=== PATIENT | male | born 1980 | race Caucasian/White ===

== ENCOUNTER 2022-12-14 11:38 | Emergency (ER) | payer OTHER, SELFPAY ==
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
[2022-12-14 11:42] VITALS: BP 147/81; PULSE 75; RESP 19; TEMP 36.6; O2SAT 99; BMI 24.2
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
== END 2022-12-14 12:18 | disposition home or self-care (01) ==
PROVIDERS: Emergency Provider Emergency Medicine; PCP Internal Medicine
DX: S71.111A Laceration without foreign body, right thigh, initial encounter (principal); S80.12XA Contusion of left lower leg, initial encounter; S80.212A Abrasion, left knee, initial encounter; W26.0XXA Contact with knife, initial encounter; Y93.9 Activity, unspecified; Y92.9 Unspecified place or not applicable; Y99.9 Unspecified external cause status
CPT/HCPCS: 99282; 99283

== ENCOUNTER 2023-02-08 21:43 | Emergency (ER) | payer SELFPAY ==
--- NOTE | ~2023-02-08 | XR_ITS ---
EXAMINATION: XR KNEE, RIGHT CLINICAL INFORMATION: Swelling. COMPARISON: None available. TECHNIQUE: Four views of the right knee. FINDINGS: The bone mineralization is normal. Alignment is anatomic. Joint spaces are maintained. There appears to be a small joint effusion. No abnormal soft tissue calcification. XR/XR knee RT 3V IMPRESSION: No acute osseous abnormality. There appears to be a small joint effusion.
[2023-02-08 22:17] VITALS: BP 137/72; PULSE 84; RESP 16; TEMP 36.9; O2SAT 94; BMI 24.7
[2023-02-08] MEDS: Ibuprofen 600 MG TABLET PO (22:26)
--- NOTE | 2023-02-08 22:27 | PC.NURSE ---
pt medicated with motrin and given ice pack
--- OUTSIDE RECORDS SUMMARY | 2023-02-08 23:29 | XMS_ITS | Continuity of Care Document ---
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 Phone Ilya Girard DO Primary Care Physician Encounter [facility] Date(s): 04/23/21 - 05/23/21 [facility] [address] [place] [address]- Attending Physician: Admtr, Fernie Admitting Physician: Admtr, Ar8 Referring Physician: Admtr, Ar8 Allergies, Adverse Reactions, Alerts Substance Reaction Severity Status NKA Active Medications amoxicillin-clavulanate 875 mg-125 mg oral tablet 1 tablet, By Mouth, Every 12 hours, with food or milk, # 28 tablet, 0 Refills, Maintenance, 05/15/16 19:07:05, Tablet Start Date: 05/15/16 Stop Date: 05/29/16 Status: Ordered Aspirin Enteric Coated 325 mg oral delayed release tablet 1 tablet = 325 mg, By Mouth, Daily, # 30 tablet, 0 Refills, Maintenance, 10/17/15 12:06:53 Start Date: 10/17/15 Status: Ordered clindamycin 300 mg oral capsule 1 capsule = 300 mg, By Mouth, Every 8 hours, # 39 capsule, 0 Refills, tooth abscess Start Date: 12/31/08 Stop Date: 01/07/09 Status: Ordered Colace sodium 100 mg oral capsule 100 mg, 1, capsule, By Mouth, 2 times a day, # 60 capsule, Refills 0, Tot. Refills 0, Maintenance, 10/17/15 12:04:34, Print Requisition Start Date: 10/17/15 Status: Ordered Dilaudid 2 mg oral tablet See Instructions, PRN for pain, 1-3 tablet By Mouth Every 3-6 hours, # 80 tablet, 0 Refills, Maintenance, 10/17/15 12:05:16, Tablet Start Date: 10/17/15 Status: Ordered Methadone By Mouth, 0 Refills, Maintenance, 03/20/21 12:55:00 EDT, Partial fill upon patient request if the prescription is for a schedule II opioid drug. Start Date: 03/20/21 Status: Ordered Omeprazole By Mouth, Daily, 0 Refills, Maintenance, 03/20/21 12:55:00 EDT, Partial fill upon patient request if the prescription is for a schedule II opioid drug. Start Date: 03/20/21 Status: Ordered ondansetron 4 mg oral tablet, disintegrating 1 tablet = 4 mg, By Mouth, Every 8 hours, PRN Nausea & Vomiting, # 5 tablet, 0 Refills, Maintenance, 06/25/16 7:42:14, Tablet Start Date: 06/25/16 Status: Ordered [id number] oral powder for reconstitution = 17 Gm, By Mouth, Daily, PRN Constipation, # 255 Gm, 0 Refills, Maintenance, 10/17/15 12:06:18 Start Date: 10/17/15 Status: Ordered traMADol 50 mg oral tablet 1 tablet = 50 mg, By Mouth, Every 12 hours, PRN as needed for pain, not to exceed 400 mg/day, # 10 tablet, 0 Refills, Maintenance, 05/15/16 19:06:46, Tablet Start Date: 05/15/16 Status: Ordered Tylenol 325 mg oral tablet 650 mg, By Mouth, Every 6 hours, PRN, # 120 tablet, Refills 0, Tot. Refills 0, Maintenance, as needed for pain, 10/17/15 12:04:27, Print Requisition Start Date: 10/17/15 Status: Ordered Ultram 50 mg oral tablet 1 tablet = 50 mg, By Mouth, Every 4 hours, PRN for pain, # 15 tablet, 0 Refills, Maintenance, 01/30/16 23:04:57, Tablet Start Date: 01/30/16 Status: Ordered Social History Social History Type Response Smoking Status Current every day neeta lucas entered on: 09/07/15 Sex
--- OUTSIDE RECORDS SUMMARY | 2023-02-08 23:29 | XMS_ITS | Continuity of Care Document ---
Author Name Unknown Organization [facility] Address [address] [place] [address]- Care Team Providers Care Data Sme Name Role Phone Ilya Girard DO Primary Care Physician Encounter [facility] Date(s): 05/18/21 - 06/17/21 [facility] [address] [place], [place] [address] Attending Physician: Fernie Velez Admitting Physician: AdmtrFernie Referring Physician: Admtr, Ar8 Allergies, Adverse Reactions, [...] 7:42:14, Tablet Start Date: 06/25/16 Status: Ordered [id number] oral powder for reconstitution = 17 Gm, [...]
--- OUTSIDE RECORDS SUMMARY | 2023-02-08 23:29 | XMS_ITS | Continuity of Care Document ---
Author Name Unknown Organization [facility] Address [address] [place] [address]- Care Team Providers Care Children'S Nursery Assistant Name Role Phone Ilya Girard DO Primary Care Physician Encounter [facility] Date(s): 05/06/21 - 06/17/21 [facility] [address] [place], [place] [address] Attending Physician: Tolu Marie MD Referring Physician: Wiliam LPN OR MEDICAL ASSISTANT, Allie Allergies, Adverse Reactions, Alerts Substance Reaction Severity [...] 7:42:14, Tablet Start Date: 06/25/16 Status: Ordered [id number] oral powder for reconstitution = 17 Gm, [...]
--- OUTSIDE RECORDS SUMMARY | 2023-02-08 23:29 | XMS_ITS | Continuity of Care Document ---
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
--- NOTE | 2023-02-08 23:50 | ED_ITS ---
HPI - General Adult General Chief complaint: Extremity Injury, Lower Stated complaint: R knee pain Time Seen by Provider: 02/08/23 23:19 Source: patient Mode of arrival: ambulatory Limitations: no limitations History of Present Illness HPI narrative: 42 yold male presents to the ED Right knee pain. patient states he was kneeling down last night and he heard a pop in right knee as he was kneeling. patient denies any blunt trauma to the knee. patient denies any knee swelling, redness, warmth, bluish/black discloration, fever, or chilss. Related Data Previous Rx's Medication Instructions Recorded amoxicillin 875 mg-potassium 1 tab PO BID #10 tabs 12/14/22 clavulanate 125 mg tablet ketorolac 10 mg tablet 10 mg PO QID PRN pain 5 days #20 02/09/23 tabs prednisone 20 mg tablet 40 mg PO DAILY 5 days #10 tabs 02/09/23 Allergies Allergy/AdvReac Type Severity Reaction Status Date / Time No Known Allergies Allergy Verified 12/14/22 12:10 Review of Systems Review of Systems: Right knee pain Yes all other systems are reviewed and are negative [facility] Social History Social History Advance Directives: No Advance Directives Information Provided: Yes Physical Exam ED Vital Signs: Vital Signs - 24 hr 02/08/23 22:17 Temperature 98.4 F Pulse Rate 84 Respiratory Rate 16 Blood Pressure 137/72 Pulse Oximetry 94 Oxygen Delivery Method Room Air BMI result Body Mass Index 24.7 Const General: cooperative, healthy appearing, comfortable, no acute distress, well developed, alert, awake and Physically active Orientation/consciousness: oriented to person, oriented to place, oriented to time and patient oriented x3 HENMT Head: Yes normal to inspection, Yes No palpable skull fracture present, Yes normocephalic and Yes atraumatic Eyes General: appearance normal, both eyes and all related structures Neck Neck: Yes normal visual inspection, Yes full ROM, Yes no lymphadenopathy, Yes no meningeal signs, Yes trachea midline, No anterior neck swelling and No tender Chest Chest palpation & inspection: normal inspection of the chest and normal palpation of entire chest wall Resp Effort & Inspection: normal respiratory effort and able to speak in complete sentences Cardio Jugular venous distension: no JVD Heart sounds: S1 normal heart sound present and S2 normal heart sound present GI Other: Rectal exam negative for [employer], melena, or bright red blood. Inspection: Yes normal to inspection and No abdominal wall ecchymosis Palpation (GI): Soft to palpation, not firm, nontender, no guarding and not rigid General: No CVA tenderness and Yes no CVA tenderness Back/Spine/Pelvis Back: no CVA tenderness, No CVA tenderness and No back tenderness Skin General skin exam: no rashes or lesions noted and elasticity normal Neuro General: oriented to person, oriented to place, oriented to time, patient oriented x3, tone normal, moves all extremities, Normal light touch and pain sensation, no meningeal signs, no focal motor deficits, CN's II-XI intact bilaterally and normal sensation to monofilament Extrem General: Yes normal to inspection Knee images: 1. Positive for tenderness on palpation. Negative for crepitus, ecchymosis or deformity. Negative for redness or warmth. negative calf pain. negative leg swelling. Motor exam of knee limited due to pain. Neurovascular exam intact. Psych Appearance: grossly normal, well kempt and not disheveled Medications Administered Discontinued Medications Generic Name Dose Route Start Last Admin Trade Name Robbieq PRN Reason Stop Dose Admin Ibuprofen 600 mg 02/08/23 22:23 02/08/23 22:26 Ibuprofen 600 Mg Tablet PO 02/08/23 22:24 600 mg ONCE ONE Administration Ketorolac Tromethamine 30 mg 02/08/23 23:24 02/08/23 23:53 Ketorolac Tromethamine 30 Mg/Ml Vial IM 02/08/23 23:25 30 mg ONCE ONE Administration Prednisone 60 mg 02/08/23 23:24 02/08/23 23:57 Prednisone 20 Mg Tablet PO 02/08/23 23:25 60 mg ONCE ONE Administration Medical Decision Making Medical Decision Making [facility] Narrative: 42 yold presents to ED for right knee pain after hearing popping right knee while trying to kneel down yesterday. Patient denies any blunt trauma, redness, swelling, fever, chills, blood dark discoloration, or deformity. X- ray shows small joint effusion. Most likely patient tore a ligament or meniscus. Not suspecting septic joint. Differential Diagnosis Differential Diagnoses: The differential diagnosis associated with the presentation includes ( knee dislocation, knee fracture, meniscus tear, ligament tear, septic joint,) Admission/Observation Consideration of admission/observation: Escalation of care including admission/observation considered Independent Interpretation I performed an independent interpretation of an: Plain X-Ray Radiology Impression Discussion of test interpretation with radiology: I have reviewed the radiologist's reading. External Record Review External record reviewed: Other (Prior ED visist) Prescription Management I considered prescription management with: Pain Medication and Other (prednisone) Discharge Plan Discharge Clinical Impression: Knee sprain Patient Disposition: Home, Self-Care Instructions: Knee Sprain (ED), Crutch Instructions (ED), How to Use an Elastic Bandage (ED), Swollen Knee Joint (ED), R.I.C.E. Treatment (ED) Additional Instructions: return to the ED for any worsening swelling, redness, warmth, leg swelling, c chcf pain, fever, chills, chest pain, shortness of breath, blue black discoloration, worsening pain, inability to walk, or any other concerning symptoms. Please follow-up with with your PCP for MRI for possible evaluation of meniscus/ligament tear. Prescriptions: New ketorolac 10 mg tablet 10 mg PO QID PRN (Reason: pain) 5 Days Qty: 20 0RF Rx Instructions: received 30mg IM toradol in the ED prednisone 20 mg tablet 40 mg PO DAILY 5 Days Qty: 10 0RF No Action amoxicillin-pot clavulanate 875-125 mg tablet 1 tab PO BID Qty: 10 0RF Stand Alone Forms: Work/School Release Discharge Date/Time: 02/09/23 00:24 Print Language: Uzbek
[2023-02-08] MEDS: Ketorolac Tromethamine 30 MG/ML VIAL IM (23:53)
[2023-02-08] MEDS: predniSONE 20 MG TABLET 60 MG PO (23:57)
--- NOTE | 2023-02-09 | PC.NURSE ---
Patient given Toradol shot and prednisone.Patient requested YASMEEN bandagesw but declined wrapping, stating I'm going home to shower and I want to do it myself . Provider aware
== END 2023-02-09 00:24 | disposition home or self-care (01) ==
PROVIDERS: Emergency Provider Emergency Medicine; PCP Internal Medicine
DX: S83.91XA Sprain of unspecified site of right knee, initial encounter (principal); X50.1XXA Overexertion from prolonged static or awkward postures, initial encounter; Y93.9 Activity, unspecified; Y92.9 Unspecified place or not applicable; Y99.9 Unspecified external cause status
CPT/HCPCS: 73562; 96372; 99282; 99284; J1885

== ENCOUNTER 2023-12-12 00:08 | Emergency (ER) | payer OTHER, SELFPAY ==
--- NOTE | 2023-12-12 00:15 | ED_ITS ---
HPI - General Adult General Chief complaint: Overdose Stated complaint: OD Time Seen by Provider: 12/12/23 00:15 History of Present Illness ED Provider: Gee BRUMFIELD narrative: The patient is a 43-year-old male who comes to the emergency room after being found relatively unresponsive. He says that he took 600 mg of Seroquel and also took a few shots of alcohol. He says he was not trying to kill himself. He says he was stressed trying to get some sleep. It is not clear how an ambulance was involved. The patient says he was alone at the time. Paramedics administered naloxone. The patient remains very sleepy. He denies any other coingestants other than the Seroquel and alcohol. The patient has girlfriend later presented to the waiting room. She says that the patient has been sending her texts indicating that he was going to kill himself. She showed me the texts. The texts indicated that he was saying goodbye and that he regretted not being a better partner. Related Data Home Medications ?Medication ?Instructions ?Recorded ?Confirmed buprenorphine 8 mg-naloxone 2 mg 1 film sublingual TID 12/12/23 12/12/23 sublingual film (Suboxone) Allergies Allergy/AdvReac Type Severity Reaction Status Date / Time No Known Allergies Allergy Verified 12/12/23 00:21 Review of Systems 2 Review of Systems: Yes all other systems are reviewed and are negative [facility] Social History Social History Advance Directives: No Advance Directives Information Provided: No Do you have a plan to hurt others: No Plan Physical Exam ED Vital Signs: Vital Signs - 24 hr 12/12/23 00:18 12/12/23 04:00 12/12/23 06:18 Temperature 97.5 F 97.6 F Pulse Rate 64 73 55 Respiratory Rate 12 16 14 Blood Pressure 156/89 H 121/73 Pulse Oximetry 99 95 Oxygen Delivery Method Room Air Room Air BMI result Body Mass Index 25.0 Const Other: The patient is sleepy but her sons to the loud verbal stimuli. He answers with brief answers. He seems quite somnolent. HENMT Other: Face is symmetrical. Airway clear. Eyes Other: Pupils are round equal, extraocular movements intact. Pupils are not pinpoint. Neck Other: Neck is supple. Resp Effort & Inspection: normal respiratory effort Auscultation: clear to auscultation bilaterally Cardio Rate: regular rate Rhythm: regular rhythm Heart sounds: S1 normal heart sound present and S2 normal heart sound present GI Other: Abdomen is soft and nontender Skin Other: Skin is pale and dry. Neuro Other: The patient is somnolent but responds to loud verbal stimuli. When he answers questions his answers are appropriate but brief. He seems very sleepy but does not seem to have any focal neurological deficit. His eye movements seem intact. His pupils are mid size and symmetrical. His face is symmetrical. He has symmetrical tone in his extremities. Extrem Other: No peripheral edema. Medications Administered Discontinued Medications Generic Name Dose Route Start Last Admin Trade Name Shabnam PRN Reason Stop Dose Admin Buprenorphine/Naloxone 1 film 12/12/23 01:37 12/12/23 01:55 Buprenorphine/Naloxone 8/2 Mg Film SUBLINGUAL 12/12/23 01:38 1 film ONCE ONE Administration Lorazepam 2 mg 12/12/23 01:59 12/12/23 02:04 Lorazepam 1 Mg Tablet PO 12/12/23 02:00 2 mg ONCE ONE Administration Medical Decision Making Medical Decision Making MDM Narrative: The patient presents to the emergency room after apparently overdosing on Seroquel. The patient was brought to the hospital by ambulance. The patient could not tell me who called the ambulance. Later I spoke to the patient's girlfriend who was in the waiting room. She said that she had called the ambulance. She said that she had come back to their apartment and found him passed out on the floor with pills around him. She called 911. Apparently police responded 1st and administered naloxone because he was obtunded. Paramedics then transferred him to the hospital. Although the patient is currently now denying any suicidal intent his girlfriend's version of events suggests otherwise. The patient will therefore be held on a section 12 for evaluation by the care team in the morning. I discussed the case with the poison Center. The patient has an unremarkable EKG, unremarkable vital signs, a negative salicylate and acetaminophen. Poison center felt that the amount of Seroquel described was not of great concern of the patient could be medically cleared after 04:00. The patient requested a dose of Suboxone which was provided. He also requested something to help him sleep. He was given lorazepam. I felt that a section 12 to keep the patient in the emergency department. The patient was unhappy that he has been detained against his well. I will be signing the patient out at change of shift this morning with a care team consult pending. Lab Data 12/12/23 01:46 12/12/23 00:45 Labs: Lab Results 12/12/23 12/12/23 12/12/23 Range/Units 00:39 00:45 00:48 WBC (4.8-10.8) X10*3/uL RBC (4.60-5.80) X10*6/uL Hgb (14.0-18.0) g/dl Hct (42.0-52.0) % MCV (80.0-98.0) fL MCH (27.0-33.0) pg MCHC (31.0-36.0) g/dl RDW (11.0-16.0) % Plt Count (160-400) X10*3/uL MPV (9.4-12.4) fL Immature Gran % (Auto) (0.0-0.4) % Neut % (Auto) (45-73) % Lymph % (Auto) (20-40) % [place] % (Auto) (2-11) % Eos % (Auto) (0-4) % Baso % (Auto) (0-2) % Lymph # (Auto) (1.2-4.9) X10*3/uL [place] # (Auto) (0.1-1.2) X10*3/uL Eos # (Auto) (0.0-0.4) X10*3/uL Baso # (Auto) (0.0-0.2) X10*3/uL Abs Immat Gran (auto) (0.00-0.03) X10*3/uL Absolute Neuts (auto) (2.0-8.3) x10*3/uL Absolute Nucleated RBC (0.0-0.012) X10*3/uL Nucleated RBC % (auto) (0.0-0.2) /100WBC PT 11.8 (11.1-13.3) SEC INR 1.0 (0.9-1.1) VBG pH 7.34 (7.32-7.43) VBG pCO2 44 mmHg VBG pO2 70 mmHg VBG HCO3 24 (22-26) mmol/L VBG O2 Saturation 91.0 % VBG Base Excess -1.3 mmol/L Sodium 145 (135-145) mmol/L Potassium 3.4 (3.3-5.1) mmol/L Chloride 108 (96-108) mmol/L Carbon Dioxide 23 (22-29) mmol/L Anion Gap 17 (12-20) BUN 15 (9-16) mg/dL Creatinine 0.72 (0.5-1.4) mg/dL Estim Creat Clear Calc 113.8 Estimated GFR > 60 Random Glucose 95 (60-115) mg/dL Calcium 9.3 (8.4-10.2) mg/dL Magnesium 2.1 (1.6-2.6) mg/dL Total Bilirubin 0.8 (0.0-1.0) mg/dL Direct Bilirubin 0.4 (0.0-0.5) mg/dL AST 119 H (5-37) U/L ALT 181 H (0-40) U/L Alkaline Phosphatase 102 (39-117) U/L Total Protein 7.5 (6.5-8.0) g/dL Albumin 4.3 (3.5-5.0) g/dL Urine Color Urine Appearance Urine pH (5.0-9.0) Ur Specific [place] (1.005-1.025) Urine Protein (Neg-Trace) mg/dL Urine Glucose (UA) (Negative) mg/dL Urine Ketones (Negative) mg/dL Urine Blood (Negative) Urine Nitrite (Negative) Ur Leukocyte Esterase (Negative) Salicylates < 5.0 L (15-30) mg/dL Urine Opiates Screen (Not Detect) Ur Buprenorphine Scrn (Not Detect) ng/mL Ur Oxycodone Screen (Not Detect) ng/mL Urine Methadone Screen (Not Detect) ng/mL Urine Fentanyl Screen (Not Detect) Acetaminophen < 3 (<30) mcg/mL Ur Barbiturates Screen (Not Detect) Ur Phencyclidine Scrn (Not Detect) Ur Amphetamines Screen (Not Detect) U Benzodiazepines Scrn (Not Detect) Urine Cocaine Screen (Not Detect) U Marijuana (THC) Screen (Not Detect) Ethyl Alcohol 185 mg/dL Influenza Type A (PCR) NEGATIVE (Negative) Influenza Type B (PCR) NEGATIVE (Negative) RSV RNA Qual (PCR) NEGATIVE (Negative) SARS-CoV-2 RNA (RT-PCR) NEGATIVE (Negative) 12/12/23 12/12/23 Range/Units 01:13 01:46 WBC 7.0 (4.8-10.8) X10*3/uL RBC 4.85 (4.60-5.80) X10*6/uL Hgb 15.7 (14.0-18.0) g/dl Hct 44.4 (42.0-52.0) % MCV 91.5 (80.0-98.0) fL MCH 32.4 (27.0-33.0) pg MCHC 35.4 (31.0-36.0) g/dl RDW 12.7 (11.0-16.0) % Plt Count 149 L (160-400) X10*3/uL MPV 9.7 (9.4-12.4) fL Immature Gran % (Auto) 0.3 (0.0-0.4) % Neut % (Auto) 56.7 (45-73) % Lymph % (Auto) 33.7 (20-40) % [place] % (Auto) 6.5 (2-11) % Eos % (Auto) 2.4 (0-4) % Baso % (Auto) 0.4 (0-2) % Lymph # (Auto) 2.4 (1.2-4.9) X10*3/uL [place] # (Auto) 0.5 (0.1-1.2) X10*3/uL Eos # (Auto) 0.2 (0.0-0.4) X10*3/uL Baso # (Auto) 0.0 (0.0-0.2) X10*3/uL Abs Immat Gran (auto) 0.02 (0.00-0.03) X10*3/uL Absolute Neuts (auto) 4.0 (2.0-8.3) x10*3/uL Absolute Nucleated RBC 0.000 (0.0-0.012) X10*3/uL Nucleated RBC % (auto) 0.0 (0.0-0.2) /100WBC PT (11.1-13.3) SEC INR (0.9-1.1) VBG pH (7.32-7.43) VBG pCO2 mmHg VBG pO2 mmHg VBG HCO3 (22-26) mmol/L VBG O2 Saturation % VBG Base Excess mmol/L Sodium (135-145) mmol/L Potassium (3.3-5.1) mmol/L Chloride (96-108) mmol/L Carbon Dioxide (22-29) mmol/L Anion Gap (12-20) BUN (9-16) mg/dL Creatinine (0.5-1.4) mg/dL Estim Creat Clear Calc Estimated GFR Random Glucose (60-115) mg/dL Calcium (8.4-10.2) mg/dL Magnesium (1.6-2.6) mg/dL Total Bilirubin (0.0-1.0) mg/dL Direct Bilirubin (0.0-0.5) mg/dL AST (5-37) U/L ALT (0-40) U/L Alkaline Phosphatase (39-117) U/L Total Protein (6.5-8.0) g/dL Albumin (3.5-5.0) g/dL Urine Color Yellow Urine Appearance Clear Urine pH 5.5 (5.0-9.0) Ur Specific [place] 1.010 (1.005-1.025) Urine Protein Negative (Neg-Trace) mg/dL Urine Glucose (UA) Negative (Negative) mg/dL Urine Ketones Negative (Negative) mg/dL Urine Blood Negative (Negative) Urine Nitrite Negative (Negative) Ur Leukocyte Esterase Negative (Negative) Salicylates (15-30) mg/dL Urine Opiates Screen Not Detected (Not Detect) Ur Buprenorphine Scrn Positive H (Not Detect) ng/mL Ur Oxycodone Screen Not Detected (Not Detect) ng/mL Urine Methadone Screen Not Detected (Not Detect) ng/mL Urine Fentanyl Screen Not Detected (Not Detect) Acetaminophen (<30) mcg/mL Ur Barbiturates Screen Not Detected (Not Detect) Ur Phencyclidine Scrn Not Detected (Not Detect) Ur Amphetamines Screen Not Detected (Not Detect) U Benzodiazepines Scrn Not Detected (Not Detect) Urine Cocaine Screen POSITIVE H (Not Detect) U Marijuana (THC) Screen POSITIVE H (Not Detect) Ethyl Alcohol mg/dL Influenza Type A (PCR) (Negative) Influenza Type B (PCR) (Negative) RSV RNA Qual (PCR) (Negative) SARS-CoV-2 RNA (RT-PCR) (Negative) Discharge Plan Discharge Clinical Impression: Overdose Patient Disposition: Still a Patient Prescriptions: No Action buprenorphine-naloxone [Suboxone] 8-2 mg film 1 film sublingual TID Print Language: Cymraes
[2023-12-12 00:18] VITALS: BP 150/90; BP 156/89; PULSE 64; RESP 12; TEMP 36.4; O2SAT 100; O2SAT 99; BMI 25.0
--- NOTE | 2023-12-12 00:19 | ECG_ITS ---
Test Reason : OVERDOSE Blood Pressure : / mmHG Vent. Rate : 062 BPM Atrial Rate : 062 BPM P-R Int : 164 ms QRS Dur : 096 ms QT Int : 410 ms P-R-T Axes : 057 043 039 degrees QTc Int : 416 ms Normal sinus rhythm Normal ECG No previous ECGs available Referred By: Alexx Flynn Electronically Signed By:KURT GENAO MD
[2023-12-12 00:56] LABS: VBG Base Excess -1.3 mmol/L; VBG HCO3 24 mmol/L (22-26); VBG pCO2 44 mmHg; VBG pH 7.34 (7.32-7.43); VBG pO2 70 mmHg
[2023-12-12 00:57] LABS: Venous Blood Gas Refer to POC result
[2023-12-12 00:59] LABS: Prothrombin Time 11.8 SEC (11.1-13.3)
[2023-12-12 01:08] LABS: Alanine Aminotransferase 181 U/L (0-40); Albumin Level 4.3 g/dL (3.5-5.0); Alkaline Phosphatase 102 U/L (39-117); Anion Gap 17 (12-20); Aspartate Amino Transferase 119 U/L (5-37); Bilirubin Direct 0.4 mg/dL (0.0-0.5); Bilirubin Total 0.8 mg/dL (0.0-1.0); Blood Urea Nitrogen 15 mg/dL (9-16); Calcium 9.3 mg/dL (8.4-10.2); Carbon Dioxide 23 mmol/L (22-29); Chloride 108 mmol/L (96-108); Creatinine Clr Calc Pharmacy 113.8; Estimated Glomerular Filt Rate > 60; Ethanol 185 mg/dL; Glucose Random 95 mg/dL (60-115); Magnesium 2.1 mg/dL (1.6-2.6); Potassium 3.4 mmol/L (3.3-5.1); Sodium 145 mmol/L (135-145); Total Protein 7.5 g/dL (6.5-8.0)
[2023-12-12 01:13] LABS: Acetaminophen LAB < 3 mcg/mL (<30); Salicylate < 5.0 mg/dL (15-30)
[2023-12-12 01:23] LABS: Appearance Urine Clear; Color Urine Yellow; Glucose Urine UA Negative (Negative); Leukocyte Esterase Urine Negative (Negative); Nitrite Urine Negative (Negative); PH 5.5 (5.0-9.0); Urine Blood Negative (Negative); Urine Ketones Negative (Negative); Urine Protein Negative (Neg-Trace)
[2023-12-12 01:30] LABS: Influenza A PCR NEGATIVE (Negative); Influenza B PCR NEGATIVE (Negative); Resp Syncy Virus RNA Qual PCR NEGATIVE (Negative); SARS COV2 PCR INHOUSE NEGATIVE (Negative)
[2023-12-12 01:34] LABS: Amphetamine Screen Urine Not Detected (Not Detect); Barbiturates, Urine Not Detected (Not Detect); Benzodiazepines Screen Urine Not Detected (Not Detect); Buprenorphine Scr Positive (Not Detect); Cannabinoid Screen Urine POSITIVE (Not Detect); Cocaine Screen Urine POSITIVE (Not Detect); Fentanyl, urine Not Detected (Not Detect); Methadone Screen, Urine Not Detected (Not Detect); Opiate Screen Urine Not Detected (Not Detect); Oxycodone Screen Urine Not Detected (Not Detect); Phencyclidine Screen Urine Not Detected (Not Detect)
--- NOTE | 2023-12-12 01:49 | PC.NURSE ---
Dr. Cartagena called poison control.
[2023-12-12 01:50] LABS: MANUAL DIFF FLAG NO
--- NOTE | 2023-12-12 01:50 | PC.NURSE ---
Girlfriend in waiting area reports having phone messages proving this was a suicide attempt as pt has been suicidal the past few days. made aware.
[2023-12-12 01:52] LABS: Basophils Percent Auto 0.4 % (0-2); Eosinophils Absolute Auto 0.2 X10*3/uL (0.0-0.4); Eosinophils Percent Auto 2.4 % (0-4); Hematocrit 44.4 % (42.0-52.0); Hemoglobin 15.7 g/dl (14.0-18.0); Imm Gran Abs Auto 0.02 X10*3/uL (0.00-0.03); Imm Gran Pct Auto 0.3 % (0.0-0.4); Lymphocytes Absolute Auto 2.4 X10*3/uL (1.2-4.9); Lymphocytes Percent Auto 33.7 % (20-40); Mean Corpuscular HGB Conc 35.4 g/dl (31.0-36.0); Mean Corpuscular Hemoglobin 32.4 pg (27.0-33.0); Mean Corpuscular Volume 91.5 fL (80.0-98.0); Mean Platelet Volume 9.7 fL (9.4-12.4); Monocytes Absolute Auto 0.5 X10*3/uL (0.1-1.2); Monocytes Percent Auto 6.5 % (2-11); Neutrophils Percent Auto 56.7 % (45-73); Platelet Count 149 X10*3/uL (160-400); Red Blood Count 4.85 X10*6/uL (4.60-5.80); Red Cell Distribution Width 12.7 % (11.0-16.0)
[2023-12-12] MEDS: Buprenorphine/Naloxone 8/2 mg FILM 1 FILM SUBLINGUAL ×3 (01:55→22:34)
[2023-12-12] MEDS: LORazepam 1 MG TABLET 2 MG PO (02:04)
[2023-12-12 04:00] VITALS: PULSE 73; RESP 16
[2023-12-12 06:18] VITALS: BP 121/73; PULSE 55; RESP 14; TEMP 36.4; O2SAT 95
--- NOTE | 2023-12-12 07:47 | PC.NURSE ---
report recieved from previous RN, patient resting on stretcher, respirations even and unlaborerd, 1:1 sitter remains at bedside at this time. all safety maintained
[2023-12-12 08:00] VITALS: BP 137/79; PULSE 79; RESP 12; TEMP 36.6; O2SAT 98
--- NOTE | 2023-12-12 09:44 | PC.NURSE ---
Ate well for breakfast, denies pain or discomfort. 1:[address]
[2023-12-12 10:00] VITALS: BP 135/73; PULSE 75; TEMP 36.8; O2SAT 93
[2023-12-12 12:00] VITALS: BP 123/81; PULSE 58; TEMP 36.9; O2SAT 97
--- NOTE | 2023-12-12 13:07 | PC.NURSE ---
patient resting comfortably on stretcher at this time, offering no complaints, 1:1 remains at bedside, all safety maintained
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
--- NOTE | 2023-12-12 14:48 | PC.NURSE ---
Assumed care of patient at 1400, patient provided with snacks and went straight to sleep on couch in BH 8, no apparent distress, respirations even and unlabored
--- NOTE | 2023-12-12 18:01 | MHC.CARE ---
Patient evaluated by the CARE Team and psychiatry this morning, disposition inpatient psychiatric treatment. He will remain in the ED and is on a Section 12A, will be reassessed in the morning. Dr. Sevilla aware of the plan and in agreement.
--- NOTE | 2023-12-12 19:10 | PC.NURSE ---
patient appears in no distress presently awaits reassessment by care team in am appears in no distress...
[2023-12-13 06:19] VITALS: BP 113/75; PULSE 51; TEMP 36.4; O2SAT 98
[2023-12-13] MEDS: Buprenorphine/Naloxone 8/2 mg FILM 1 FILM SUBLINGUAL (08:10)
--- NOTE | 2023-12-13 11:07 | P.CNPS_ITS ---
History of Present Illness Date of Service: 12/13/2023 Chief Complaint: OD Discussed with referring provider: Yes Sources of Information: patient interviewed, chart reviewed and crisis/core team assessment reviewed HPI Narrative: Interim Hx: pt presents as calmer. He continues to denied suicidal ideation. He reports he has been overwhelmed and upset about his relationship with his GF. He reports there are trust issues between us. He does not that she is trying to help him but also continues to denied that it was a suicide attempt. He denies any safety concern or referrals for outpatient services. Per nursing, pt has been calm, cooperative. He is taking medications as prescribed. No behavioral concerns. Past Psychiatric History: Inpt: denies OP:Jackelyn Dennison Past med trials: campral, seroquel Diagnostics Vital Signs (24Hr): Vital Signs - 24 hr 12/12/23 12:00 12/13/23 06:19 Temperature 98.4 F 97.6 F Pulse Rate 58 51 Blood Pressure 123/81 113/75 Pulse Oximetry 97 98 Oxygen Delivery Method Room Air Room Air BMI result Body Mass Index 25.0 Labs 12/12/23 01:46 12/12/23 00:45 Labs: Laboratory Results - last 48 hr 12/12/23 12/12/23 12/12/23 00:39 00:45 00:48 WBC RBC Hgb Hct MCV MCH MCHC RDW Plt Count MPV Immature Gran % (Auto) Neut % (Auto) Lymph % (Auto) [place] % (Auto) Eos % (Auto) Baso % (Auto) Lymph # (Auto) [place] # (Auto) Eos # (Auto) Baso # (Auto) Abs Immat Gran (auto) Absolute Neuts (auto) Absolute Nucleated RBC Nucleated RBC % (auto) PT 11.8 INR 1.0 VBG pH 7.34 VBG pCO2 44 VBG pO2 70 VBG HCO3 24 VBG O2 Saturation 91.0 VBG Base Excess -1.3 Sodium 145 Potassium 3.4 Chloride 108 Carbon Dioxide 23 Anion Gap 17 BUN 15 Creatinine 0.72 Estim Creat Clear Calc 113.8 Estimated GFR > 60 Random Glucose 95 Calcium 9.3 Magnesium 2.1 Total Bilirubin 0.8 Direct Bilirubin 0.4 AST 119 H ALT 181 H Alkaline Phosphatase 102 Total Protein 7.5 Albumin 4.3 Urine Color Urine Appearance Urine pH Ur Specific [place] Urine Protein Urine Glucose (UA) Urine Ketones Urine Blood Urine Nitrite Ur Leukocyte Esterase Salicylates < 5.0 L Urine Opiates Screen Ur Buprenorphine Scrn Ur Oxycodone Screen Urine Methadone Screen Urine Fentanyl Screen Acetaminophen < 3 Ur Barbiturates Screen Ur Phencyclidine Scrn Ur Amphetamines Screen U Benzodiazepines Scrn Urine Cocaine Screen U Marijuana (THC) Screen Ethyl Alcohol 185 Influenza Type A (PCR) NEGATIVE Influenza Type B (PCR) NEGATIVE RSV RNA Qual (PCR) NEGATIVE SARS-CoV-2 RNA (RT-PCR) NEGATIVE 12/12/23 12/12/23 01:13 01:46 WBC 7.0 RBC 4.85 Hgb 15.7 Hct 44.4 MCV 91.5 MCH 32.4 MCHC 35.4 RDW 12.7 Plt Count 149 L MPV 9.7 Immature Gran % (Auto) 0.3 Neut % (Auto) 56.7 Lymph % (Auto) 33.7 [place] % (Auto) 6.5 Eos % (Auto) 2.4 Baso % (Auto) 0.4 Lymph # (Auto) 2.4 [place] # (Auto) 0.5 Eos # (Auto) 0.2 Baso # (Auto) 0.0 Abs Immat Gran (auto) 0.02 Absolute Neuts (auto) 4.0 Absolute Nucleated RBC 0.000 Nucleated RBC % (auto) 0.0 PT INR VBG pH VBG pCO2 VBG pO2 VBG HCO3 VBG O2 Saturation VBG Base Excess Sodium Potassium Chloride Carbon Dioxide Anion Gap BUN Creatinine Estim Creat Clear Calc Estimated GFR Random Glucose Calcium Magnesium Total Bilirubin Direct Bilirubin AST ALT Alkaline Phosphatase Total Protein Albumin Urine Color Yellow Urine Appearance Clear Urine pH 5.5 Ur Specific [place] 1.010 Urine Protein Negative Urine Glucose (UA) Negative Urine Ketones Negative Urine Blood Negative Urine Nitrite Negative Ur Leukocyte Esterase Negative Salicylates Urine Opiates Screen Not Detected Ur Buprenorphine Scrn Positive H Ur Oxycodone Screen Not Detected Urine Methadone Screen Not Detected Urine Fentanyl Screen Not Detected Acetaminophen Ur Barbiturates Screen Not Detected Ur Phencyclidine Scrn Not Detected Ur Amphetamines Screen Not Detected U Benzodiazepines Scrn Not Detected Urine Cocaine Screen POSITIVE H U Marijuana (THC) Screen POSITIVE H Ethyl Alcohol Influenza Type A (PCR) Influenza Type B (PCR) RSV RNA Qual (PCR) SARS-CoV-2 RNA (RT-PCR) Mental Status Exam Mental Status Exam Narrative: Appearance: wearing hospital gown, fair hygiene, in NAD behavior: more cooperative and calmer. Psychomotor: no agitation or retardation noted Speech: clear, normal rate/rhythm/volume, spontaneous TP: linear TC: wanting to go home and denying suicidal ideation nor that he attempted to end his life Mood: calmer Affect: congruent, less guarded. SI: adamantly denies HI: none VH/AH: none Delusions: none Insight/judgment: poor x 2. Memory/cog: alert, oriented x 3. grossly intact to conversational testing. Medications Medications Current Medications Buprenorphine/Naloxone (Buprenorphine/Naloxone 8/2 Mg Film) 1 film SUBLINGUAL TID SOLIS Last Admin: 12/13/23 08:10 Dose: 1 film Allergies Allergies Allergy/AdvReac Type Severity Reaction Status Date / Time No Known Allergies Allergy Verified 12/12/23 00:21 Assessment & Plan Assessment & Plan (1) Mood disorder: Status: Acute Code(s): F39 - Unspecified mood [affective] disorder (2) Alcohol use disorder, moderate, dependence: Status: Acute Code(s): F10.20 - Alcohol dependence, uncomplicated (3) Cocaine use disorder, moderate, dependence: Status: Acute Code(s): F14.20 - Cocaine dependence, uncomplicated (4) Opioid use disorder, moderate, in early remission, on maintenance therapy, dependence: Status: Acute Code(s): F11.21 - Opioid dependence, in remission Plan Mr. Angeles is a 43 year-old male who was brought via EMS after GF found him unresponsive. He had sent several messages to her saying goodbye and stating he hoped he was a better partner to her. Utox was positive for buprenorphine, cocaine, THC. BAL 182. In the ED, VS stable, EKG unremarkable. No significant medical finding to support more severe form of self harm. Pt adamantly denies that he attempted to end his life. He reports messages were related to him ending the relationship. He states he was trying to sleep and therefore he passed out on the floor. PLAN 12/12 pt continues to present as calm, cooperative, adamantly denying that he tried to end his life or that he is suicidal. He reports text messages were with intent to her attention and that he was referring when saying good bye to the relationship. He did not state that he was ending his life. He is able to identify other protective factors like his mother, his other children. He declines further referrals for outpatient services. He is currently on suboxone and sees psychiatric prescriber. Recommend to discharge. Total time managing care of this patient today ____ minutes.
[2023-12-13 12:12] VITALS: BP 113/75; PULSE 51; RESP 18; TEMP 36.4; O2SAT 98
--- OUTSIDE RECORDS SUMMARY | 2023-12-15 07:28 | XMS_ITS | Continuity of Care Document ---
Author Organization [facility] ter Address [address] [place] [address]- Care Team Providers Care Communication Center Operator Name Role Phone YuanIlya contreras DO Primary Care Physician Encounter 11/17/23 - 11/18/[address] [address] Attending Physician: Not on Staff, Attending MD Referring Physician: Not on Staff, Referring MD Allergies, Adverse Reactions, Alerts No Known Allergies Medications Methadone By Mouth, 0 Refills, Maintenance, 03/20/21 12:55:00 EDT, Partial fill upon patient request if the prescription is for a schedule II opioid drug. Start Date: 03/20/21 Status: Ordered Omeprazole By Mouth, Daily, 0 Refills, Maintenance, 03/20/21 12:55:00 EDT, Partial fill upon patient request if the prescription is for a schedule II opioid drug. Start Date: 03/20/21 Status: Ordered oxyCODONE 5 mg oral tablet Refills 0, Tot. Refills 0, Maintenance, 04/18/23 12:20:00 EDT, Partial fill upon patient request ifthe prescription is for a schedule II opioid drug. Start Date: 04/18/23 Status: Ordered Results Radiology Reports * Exam Date Time Procedure Performing Provider Status 11/17/23 5:04 PM MRI Ext Lower W/O Contrast Right Auth (Verified) Notes: (MRI Ext Lower W/O Contrast Right) Reason For Exam: Reason For Exam: M25.561 - Pain in right knee, , ? ACL tear;Reason For Exam: M25.561 - Pain in right knee, , ? ACL tear RESULT: MRI Ext Lower W/O Contrast Right [facility] VISIT NUMBER :[id number] Patient Name: Tyrel Angeles Date of : 1980 Date of Exam: 11-17-2023 Referring Physician: Abram Marshall [facility] [address], [address] [place] [address] Exam: MR Knee (C-) CPT 83266 - Right Room Description: Dago A[facility]zquita [facility] 1.5 MRI right knee History: Pain. Partial medial meniscectomy 04/18/2023 Findings: Truncation of the body and posterior horn of the medial meniscus. Horizontal signal in the body and posterior horn of the medial meniscus contacts the inferior articular surface. Lateral meniscus is intact. Lateral tibial plateau fracture. Fracture line extends through weightbearing surface cartilage of the lateral tibial plateau on image 13 of series 7. Fracture line extends into the midline tibia and through the base of the medial tibial spine. No significant tibial spine distraction. Marrow edema is noted throughout the tibial plateau. No significant depression or incongruity within the lateral compartment The ACL and PCL are intact The MCL is intact The LCL complex including the biceps femoris, popliteus and fibular collateral ligaments are intact The medial and lateral patellar retinacula are intact. The extensor mechanism is intact. Small Grover's cyst. Mild edema within the anterior and lateral compartment musculature of the imaged proximal leg. Mild edema within the popliteus muscle. Impression: Lateral tibial plateau fracture as detailed above. Truncation of the body and posterior horn of the medial meniscus. Horizontal signal in the body and posterior horn of the medial meniscus contacts the inferior articular surface. Difficult to exclude a tear but the findings could be related to previous partial medial meniscectomy. A Significant actionable finding will be communicated to the ordering or responsible provider by the medical records department. Receipt of this communication by the responsible or ordering provider will be documented in [employer] Actionable Findings, message ID [id number]. Electronically Signed By: Ronen Cade MD Dictated By: Not on Staff ERIKA MD Dictated Date/Time: 11/18/23 8:54 am Reviewed By: Not on Staff ERIKA MD Signed By: Not on Staff ERIKA MD Signed Date/Time: 11/18/23 8:54 am Transcribed By: HUNG Transcribed Date/Time: 11/18/23 8:54 am Social History Social History Type Response Smoking Status Current every day neeta lucas entered on: 09/07/15 Sex Patient Care team information Care Team Personnel Name: Darby Small RN Position: [facility] RN Member Role: Primary Care Nurse Name: Ilya Girard DO Position: [facility] Physician - Primary Care Member Role: PCP Address: Address: [address] [place] [address] [address] [place] [address]- Care Team Related Persons Name: SUPRIYAEZEKIELGARY BAILEY Address: home [address] [place] [address] Name: JORGE BEARD Address: home [address] [place] [address]
--- OUTSIDE RECORDS SUMMARY | 2023-12-15 07:28 | XMS_ITS | Continuity of Care Document ---
Author Organization [facility] ter Address [address] [place] [id number]- Care Team Providers Care Band Top Maker Name Role Phone YuanjosefinaIlya mcgarry DO Primary Care Physician Encounter [facility] Date(s): 02/27/23 - 02/27/[address] [address]- Discharge Disposition: A-D/C Home Attending Physician: Carter Winslow MD Admitting Physician: Carter Winslow MD Referring Physician: Not on Staff, Referring [...] 12:05:16, Tablet Start Date: 10/17/15 Status: Ordered Macrobid macrocrystals-monohydrate 100 mg oral capsule 1 capsule = 100 mg, By Mouth, 2 times a day, for 5 days, # 10 capsule, 0 Refills, Acute 03/04/23 15:48:00 EDT, 02/27/23 15:48:00 EDT, Capsule, [facility], Partial fill upon patient request if the prescription is for a schedule II opioid... Start Date: 02/27/23 Stop Date: 03/04/23 Status: Ordered Methadone By Mouth, 0 Refills, Maintenance, 03/20/21 12:55:00 EDT, Partial fill upon patient request if the prescription is for a schedule II opioid drug. Start Date: 03/20/21 Status: Ordered nitrofurantoin macrocrystals 100 mg oral capsule 1 capsule = 100 mg, By Mouth, 2 times a day, for 5 days, # 10 capsule, 0 Refills, Acute 03/04/23 15:20:00 EDT, 02/27/23 15:20:00 EDT, [id number] Partial fill upon patient request ifthe prescription is for a schedule II opioid drug.,... Start Date: 02/27/23 Stop Date: 03/04/23 Status: Ordered Omeprazole By Mouth, Daily, 0 [...] 7:42:14, Tablet Start Date: 06/25/16 Status: Ordered [id number] oral powder for reconstitution = 17 Gm, [...] 23:04:57, Tablet Start Date: 01/30/16 Status: Ordered Results Orders for Microbiology Reports Name Date Urine Culture (URINE CULTURE) 02/27/23 Microbiology Reports TEST:Urine Culture STATUS:Unauthenticated BODY SITE: SOURCE:URINE COLLECTED DATE/TIME:02/27/23 10:10 AM Urine Culture SPECIMEN DESCRIPTION : URINE CLEAN CATCH/MIDSTREAM SPECIAL REQUESTS : NONE Reflexed from [id number] REPORT STATUS : PRELIMINARY REPORT Vital Signs Most recent to oldest [Reference Range]: 1 2 3 Height 178 cm (02/27/23 10:27 AM) 178 cm (02/27/23 10:18 AM) Weight 75.4 kg (02/27/23 10:27 AM) 75.4 kg (02/27/23 10:18 AM) Oxygen Saturation [94-100 %] 96 % (02/27/23 2:13 PM) 95 % (02/27/23 12:02 PM) 96 % (02/27/23 10:18 AM) Pulse Rate [55-90 bpm] 77 bpm (02/27/23 2:13 PM) 74 bpm (02/27/23 12:02 PM) 87 bpm (02/27/23 10:18 AM) Body Mass Index [18.5-24.99 kg/m2] 23.8 kg/m2 (02/27/23 10:18 AM) Blood Pressure [90-138/55-84 mm Hg] 138/88mm Hg (02/27/23 2:13 PM) 143/87mm Hg *H* (02/27/23 12:02 PM) 178/91mm Hg *H* (02/27/23 10:18 AM) Respiratory Rate [16-30 br/min] 18 br/min (02/27/23 2:13 PM) 18 br/min (02/27/23 12:02 PM) 18 br/min (02/27/23 10:18 AM) Temperature [96.8-100.4 DegF] 98.4 DegF (02/27/23 2:13 PM) 98.4 DegF (02/27/23 12:02 PM) 98.8 DegF (02/27/23 10:18 AM) Mode of Delivery (Oxygen) Room air (02/27/23 2:13 PM) Room air (02/27/23 12:02 PM) Room air (02/27/23 10:18 AM) Blood pressure sites Arm, left (02/27/23 2:13 PM) Arm, left (02/27/23 12:02 PM) Arm, right (02/27/23 10:18 AM) Temperature Route Oral (02/27/23 2:13 PM) Oral (02/27/23 12:02 PM) Oral (02/27/23 10:18 AM) Social History Social History Type Response Smoking Status Current every day neeta lance entered on: 09/07/15 Sex Patient Care team information Care Team Personnel Name: Darby Small RN Position: [facility] RN Member Role: Primary Care Nurse Name: Ilya Girard DO Position: [facility] Physician - Primary Care Member Role: PCP Address: Address: [address] [place] [address] [address] [place] [address]- Name: *[facility], ED Attending Position: [facility] ED Attendings Patient Name: Carter Winslow MD Position: [facility] ED Medicine MD Member Role: Admitting Physician Address: Address: [address] [facility] [place] [address]- Care Team Related Persons Name: GARY WU Address: home [address] [place] [address] Name: JORGE BEARD Address: home [address] [place] [address]
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
== END 2023-12-13 12:14 | disposition home or self-care (01) ==
PROVIDERS: Emergency Provider Emergency Medicine
DX: T43.591A Poisoning by other antipsychotics and neuroleptics, accidental (unintentional), initial encounter (principal); R45.851 Suicidal ideations; F43.9 Reaction to severe stress, unspecified; F39 Unspecified mood [affective] disorder; Y92.9 Unspecified place or not applicable; Z79.899 Other long term (current) drug therapy; Z03.818 Encounter for observation for suspected exposure to other biological agents ruled out
CPT/HCPCS: 0241U; 80048; 80076; 80143; 80179; 80307; 81003; 82803; 83735; 85025; 85610; 93005; 99285; S9485

== ENCOUNTER → 2023-12-12 00:19 | Outpatient (BNV) | payer OTHER, SELFPAY | PROVIDERS: Emergency Provider Emergency Medicine; Visit Provider Internal Medicine Cardiovascular Disease | DX: T43.3X1A Poisoning by phenothiazine antipsychotics and neuroleptics, accidental (unintentional), initial encounter (principal) | CPT/HCPCS: 93010 ==

== ENCOUNTER → 2023-12-12 00:46 | Outpatient (BNV) | payer OTHER, SELFPAY | PROVIDERS: Emergency Provider Emergency Medicine; Visit Provider Social Worker | DX: F39 Unspecified mood [affective] disorder (principal); F10.20 Alcohol dependence, uncomplicated; F14.20 Cocaine dependence, uncomplicated; F11.21 Opioid dependence, in remission | CPT/HCPCS: 99285 ==

== ENCOUNTER 2024-01-27 11:11 | Emergency (ER) | payer OTHER, SELFPAY ==
[2024-01-27 11:19] VITALS: BP 153/88; PULSE 78; RESP 17; TEMP 36.8; O2SAT 97; BMI 20.4
--- NOTE | 2024-01-27 11:21 | ED.GENADULT ---
HPI - General Adult General Chief complaint: General Medical Stated complaint: hand infection Related Data Home Medications ?Medication ?Instructions ?Recorded ?Confirmed buprenorphine 8 mg-naloxone 2 mg 1 film sublingual 12/12/23 01/29/24 sublingual film (Suboxone) TID@0800, Allergies Allergy/AdvReac Type Severity Reaction Status Date / Time No Known Allergies Allergy Verified 01/28/24 20:55 PMFSH Past Medical History Medical History (Updated 01/30/24 @ 12:53 by KEYONNA Owens) Opioid use disorder Cocaine use disorder, moderate, dependence Surgical History (Updated 01/30/24 @ 11:31 by Jeannine Rodriguez RN) History of ankle surgery Hx of appendectomy Hx of knee surgery Social History Social History Household Members: Significant Other Housing: Apartment Do you presently have visiting nurse or other home services: No Patient Tobacco Use Status: Current everyday Tobacco user Tobacco use type: Cigarette Cigarettes Per Day: 20 e-Cigarette/Vaping Use: Currently Using Substance Use Type: Marijuana service: No Physical Exam ED Vital Signs: BMI result Body Mass Index 20.4 Course Course Course Narrative: This is an RME: Additional HPI, ROS, PE not included below will be deferred to primary provider. RME assessment and note performed by: Dolores Marcum PA-C This is a [id number]-male, with no known medical problems, who presents to the ER with complaints of right hand redness. Reports that he is doing home improvement projects at his house and cut his right hand on a wall. Reporting that he noticed what he thought was a splinter in his right hand and started picking at this with tweezers. Now noticing increased redness, swelling and lymphangetic spread up his right arm (line drawn at 11:30AM). No fevers or chills. Endorsing some nausea Plan: Labs, x-ray, further ER evaluation needed. Reevaluation(s) Reevaluation #1: Patient left without completing treatment. Discharge Plan Discharge Clinical Impression: Hand abrasion Patient Disposition: Left W/O Completing Treatment Prescriptions: No Action buprenorphine-naloxone [Suboxone] 8-2 mg film 1 film sublingual TID@799, Discharge Date/Time: 01/27/24 14:37
== END 2024-01-27 14:37 | disposition left against medical advice (07) ==
LOC: HO.ED 14:32
PROVIDERS: Emergency Provider Emergency Medicine; PCP Internal Medicine
DX: S60.511A Abrasion of right hand, initial encounter (principal); W26.8XXA Contact with other sharp object(s), not elsewhere classified, initial encounter; Y93.E9 Activity, other interior property and clothing maintenance; Y92.038 Other place in apartment as the place of occurrence of the external cause; Y99.9 Unspecified external cause status; Z53.21 Procedure and treatment not carried out due to patient leaving prior to being seen by health care provider
CPT/HCPCS: 99281

== ENCOUNTER 2024-01-28 20:29 | Inpatient (IN) | payer OTHER, SELFPAY ==
--- NOTE | ~2024-01-28 | CT_ITS ---
EXAMINATION: CT HAND WITH CONTRAST, RIGHT CLINICAL INFORMATION: Hand infection. Swelling. COMPARISON: None available. TECHNIQUE: Contiguous axial CT scan images of the right hand obtained after the intravenous administration of 85 mL Omnipaque 300. Sagittal and coronal reformatted images also obtained. This CT examination was performed using dose optimization techniques as appropriate, variously including the following: *Automated exposure control *Adjustment of mA and/or kV according to patient size (this includes techniques or standardized protocols for targeted exams where dose is matched to indication/reason for exam; i.e. extremities or head) *Use of iterative reconstruction technique DLP: 127 mGy-cm FINDINGS: The bone mineralization is within normal limits. There is a fracture through the base of the proximal phalanx first digit of uncertain acuity. The bony structures and joint spaces are otherwise unremarkable. There is soft tissue swelling along the dorsum of the hand with a 1.1 cm subcutaneous collection along the dorsum of the hand at the level of the distal third metacarpal. CT/CT hand RT w IV con IMPRESSION: 1. Soft tissue swelling along the dorsum of the hand with a 1.1 cm subcutaneous collection along the dorsum of the hand at the level of the distal third metacarpal. 2. Fracture through the base of the proximal phalanx first digit of uncertain acuity.
--- NOTE | ~2024-01-28 | XR_ITS ---
EXAMINATION: XR HAND, RIGHT CLINICAL INFORMATION: Possible infection COMPARISON: None available. TECHNIQUE: PA, lateral, and oblique views of the right hand. FINDINGS: No acute fracture or dislocation. Degenerative changes of the first MCP joint. Soft tissue swelling along the dorsum of the hand cortical erosion, periosteal reaction, or osteopenia. No subcutaneous gas XR/XR hand RT min 3V IMPRESSION: Soft tissue swelling along the dorsum of the hand. No radiographic evidence of osteomyelitis. If there is clinical concern, MRI is a more sensitive study.
[2024-01-28 20:54] VITALS: BP 135/83; PULSE 86; RESP 16; TEMP 36.9; O2SAT 97; BMI 21.0
[2024-01-28 21:33] LABS: MANUAL DIFF FLAG NO
[2024-01-28 21:45] LABS: Basophils Absolute Auto 0.1 X10*3/uL (0.0-0.2); Basophils Percent Auto 0.5 % (0-2); Eosinophils Absolute Auto 0.2 X10*3/uL (0.0-0.4); Eosinophils Percent Auto 2.2 % (0-4); Hematocrit 47.5 % (42.0-52.0); Hemoglobin 16.2 g/dl (14.0-18.0); Imm Gran Abs Auto 0.04 X10*3/uL (0.00-0.03); Imm Gran Pct Auto 0.4 % (0.0-0.4); Lymphocytes Absolute Auto 2.6 X10*3/uL (1.2-4.9); Mean Corpuscular HGB Conc 34.1 g/dl (31.0-36.0); Mean Corpuscular Hemoglobin 31.6 pg (27.0-33.0); Mean Corpuscular Volume 92.8 fL (80.0-98.0); Monocytes Absolute Auto 0.7 X10*3/uL (0.1-1.2); Monocytes Percent Auto 7.6 % (2-11); Neutrophils Percent Auto 62.3 % (45-73); Platelet Count 152 X10*3/uL (160-400); Red Blood Count 5.12 X10*6/uL (4.60-5.80); Red Cell Distribution Width 12.6 % (11.0-16.0); White Blood Count 9.7 X10*3/uL (4.8-10.8)
[2024-01-28 21:51] LABS: Alanine Aminotransferase 123 U/L (0-40); Albumin Level 4.5 g/dL (3.5-5.0); Alkaline Phosphatase 113 U/L (39-117); Anion Gap 15 (12-20); Aspartate Amino Transferase 62 U/L (5-37); Bilirubin Total 1.2 mg/dL (0.0-1.0); Blood Urea Nitrogen 16 mg/dL (9-16); C Reactive Protein 0.12 mg/dL (< or = 0.50); Calcium 9.5 mg/dL (8.4-10.2); Carbon Dioxide 24 mmol/L (22-29); Chloride 105 mmol/L (96-108); Glucose Random 105 mg/dL (60-115); Potassium 3.4 mmol/L (3.3-5.1); Sodium 141 mmol/L (135-145); Total Protein 7.8 g/dL (6.5-8.0)
[2024-01-28 22:04] LABS: Lactic Acid 2.1 mmol/L (0.5-2.0)
[2024-01-28 22:13] LABS: Creatinine Clr Calc Pharmacy 86.7; Estimated Glomerular Filt Rate > 60
[2024-01-28 22:35] LABS: Erythrocyte Sedimentation Rate 2 MM/HR (0-15)
--- NOTE | 2024-01-28 22:46 | ED.SKABFB ---
HPI - Skin/Abscess/Foreign Bdy General Chief complaint: Skin/Abscess/Foreign Body Stated complaint: rt hand would infection Time Seen by Provider: 01/28/24 22:38 Source: patient Mode of arrival: ambulatory Limitations: no limitations History of Present Illness ED Provider: DR. Mcleod HPI narrative: 43-year-old male presented with right hand swelling and pain and redness for the past 3 days, patient came to the ED yesterday but left without being seen. Stated that the patient was cleaning the attic 2 weeks ago causing small laceration on right hand the patient did not seek medical attention then started 3-4 days ago to have swelling and pain and right hand, no fever, no chills. Patient is unable to fully close a fist with the right hand. Noticed discharge coming from the dorsum of the right hand. Patient is a former IV drug abuser declined shooting in the right hand. Related Data Home Medications ?Medication ?Instructions ?Recorded ?Confirmed buprenorphine 8 mg-naloxone 2 mg 1 film sublingual TID 12/12/23 12/12/23 sublingual film (Suboxone) Allergies Allergy/AdvReac Type Severity Reaction Status Date / Time No Known Allergies Allergy Verified 01/28/24 20:55 Review of Systems Review of Systems: All other systems are reviewed and are negative Constitutional: Reports as per HPI and Reports no additional constitutional complaints Eyes: Reports as per HPI and Reports no additional eye complaints Reports system reviewed and no additional complaints, except as documented Cardiovascular: Reports as per HPI and Reports no additional cardiovascular complaints Respiratory: Reports as per HPI and Reports no additional respiratory complaints Gastrointestinal: Reports as per HPI and Reports no additional gastrointestinal complaints Genitourinary: Reports no additional female genitourinary complaints Musculoskeletal: Reports no additional musculoskeletal complaints Skin/Breast: Reports system reviewed and no additional complaints, except as docu Psychiatric: Reports no additional psychiatric complaints Endocrine: Reports no additional endocrine complaints Hematologic/Lymphatic: Reports no additional hematologic/lymphatic complaints Allergic/Immunologic: Reports no additional allergic/immunologic complaints Reports system reviewed and no additional complaints, except as documented and Reports Abnormal speech present [facility] Social History Social History Advance Directives: No Advance Directives Information Provided: No Do you have a plan to hurt others: No Plan Physical Exam Vital Signs: Vital Signs: Last Vital Signs Temp 98.4 F 01/28/24 20:54 Pulse 86 01/28/24 20:54 Resp 16 01/28/24 20:54 BP 135/83 01/28/24 20:54 Pulse Ox 97 01/28/24 20:54 O2 Del Method Room Air 01/28/24 20:54 BMI result Body Mass Index 21.0 Vital signs have been reviewed and appear to be correct. Blood pressure elevated. Heart rate normal. Respiratory rate normal. Temperature normal. Oxygen saturation normal. Appearance: Alert. Oriented X3. No acute distress. Head: Normal external exam. Normocephalic. Atraumatic. No Mccall signs noted. No raccoon eyes noted Eyes: PERRLA. EOMI. Conjunctiva and sclera normal. Eyelids normal. ENT: TM's Normal. Pharynx normal. Uvula midline. Moist mucous membranes. No trismus noted. No drooling noted. No muffled voice noted. Neck: Normal inspection. Neck supple. FROM. No adenopathy. Thyroid Normal. No meningeal signs. No neck mass noted. CVS: Normal heart rate and rhythm. Heart sound normal. No murmurs noted. Pulses normal throughout. Respiratory: No respiratory distress. Painless inspiration. Breath sounds normal. No wheezes/rales/rhonchi noted. Chest nontender. No accessory muscle usage noted or decreased air movement noted. Abdomen: Soft and nontender. Bowel sounds normal in all 4 quadrants. No distention noted. No organomegaly noted. No visible injury noted. Back: No CVA tenderness. Full range of motion noted. Skin: Skin warm and dry. Normal skin color. Normal skin turgor. No rashes/lesions/lacerations noted. Extremities: Right hand: Old wound on the dorsum of the right hand between 3rd and 4th digit, diffuse swelling of the dorsum of the hand with redness, tender to touch, no fluctuation, no apparent discharge from the right hand. Neuro: Oriented X 3. Cranial nerve exam: II-XII are grossly intact No motor deficit. No sensory deficit. Reflexes normal. Course Reevaluation(s) Reevaluation #1: Right hand cellulitis secondary to old wound. No sepsis. Declined using drugs in right hand recently. X-ray right hand shows no osteomyelitis. Start the patient on Zosyn and vanco. Admit. Time: 22:50 Medical Decision Making Differential Diagnosis Differential Diagnoses: The differential diagnosis associated with the presentation includes (Retained right hand foreign body, cellulitis of the right hand, tenosynovitis, sepsis.) Admission/Observation Consideration of admission/observation: Escalation of care including admission/observation considered Consult Healthcare Provider Management of the patient was discussed with: Hospitalist (Dr. Velazquez) Lab Data MDM Lab Attestation statement: I reviewed the patient's lab results. 01/28/24 21:28 01/28/24 21:28 Labs: Lab Results 01/28/24 Range/Units 21:28 WBC 9.7 (4.8-10.8) X10*3/uL RBC 5.12 (4.60-5.80) X10*6/uL Hgb 16.2 (14.0-18.0) g/dl Hct 47.5 (42.0-52.0) % MCV 92.8 (80.0-98.0) fL MCH 31.6 (27.0-33.0) pg MCHC 34.1 (31.0-36.0) g/dl RDW 12.6 (11.0-16.0) % Plt Count 152 L (160-400) X10*3/uL MPV 10.0 (9.4-12.4) fL Immature Gran % (Auto) 0.4 (0.0-0.4) % Neut % (Auto) 62.3 (45-73) % Lymph % (Auto) 27.0 (20-40) % [place] % (Auto) 7.6 (2-11) % Eos % (Auto) 2.2 (0-4) % Baso % (Auto) 0.5 (0-2) % Lymph # (Auto) 2.6 (1.2-4.9) X10*3/uL [place] # (Auto) 0.7 (0.1-1.2) X10*3/uL Eos # (Auto) 0.2 (0.0-0.4) X10*3/uL Baso # (Auto) 0.1 (0.0-0.2) X10*3/uL Abs Immat Gran (auto) 0.04 H (0.00-0.03) X10*3/uL Absolute Neuts (auto) 6.0 (2.0-8.3) x10*3/uL Absolute Nucleated RBC 0.000 (0.0-0.012) X10*3/uL Nucleated RBC % (auto) 0.0 (0.0-0.2) /100WBC ESR 2 (0-15) MM/HR Sodium 141 (135-145) mmol/L Potassium 3.4 (3.3-5.1) mmol/L Chloride 105 (96-108) mmol/L Carbon Dioxide 24 (22-29) mmol/L Anion Gap 15 (12-20) BUN 16 (9-16) mg/dL Creatinine 0.99 (0.5-1.4) mg/dL Estim Creat Clear Calc 86.7 Estimated GFR > 60 Random Glucose 105 (60-115) mg/dL Lactic Acid 2.1 H* (0.5-2.0) mmol/L Calcium 9.5 (8.4-10.2) mg/dL Total Bilirubin 1.2 H (0.0-1.0) mg/dL AST 62 H (5-37) U/L ALT 123 H (0-40) U/L Alkaline Phosphatase 113 (39-117) U/L C-Reactive Protein 0.12 (< or = 0.50) mg/dL Total Protein 7.8 (6.5-8.0) g/dL Albumin 4.5 (3.5-5.0) g/dL Independent Interpretation I performed an independent interpretation of an: Plain X-Ray (Right hand:Soft tissue swelling along the dorsum of the hand. No radiographic evidence of osteomyelitis. If there is clinical concern, MRI is a more sensitive study. ) Radiology Impression Discussion of test interpretation with radiology: I have reviewed the radiologist's reading. Chronic Conditions Patient?s care impacted by: Other Discharge Plan Discharge Clinical Impression: Cellulitis of hand, right Patient Disposition: Admitted As Inpatient Print Language: French
--- NOTE | 2024-01-28 23:04 | P.HPHOSP_ITS ---
History of Present Illness Date of Service: 01/28/24 Chief Complaint: Hand infection This is a 43-year-old male with pertinent history of IV drug use disorder on Suboxone who presents to the emergency department for evaluation of right hand swelling. Patient admits that he previously used IV drugs but states he stopped using IV drugs recently. He sniffs drugs and last used on the day of presentation. Patient denies using IV drugs in the right hand. States that about 2 weeks ago he had a small laceration on the right hand which never healed. He began noticing swelling and pain of the right hand that started 3 days prior to presentation. Patient was in the ER yesterday but left without being seen. His symptoms have been progressive and he is unable to completely make a fist with the right hand. Also noticed discharge from the right hand. Denies any history of skin infection or MRSA. No fever, chills, chest discomfort, palpitations, shortness of breath, abdominal pain, changes in urinary or bowel habits. In the emergency department, x-ray without any acute abnormality and patient was initiated on empiric IV antibiotics Review of Systems 2 Constitutional: Constitutional: Reports no additional constitutional complaints Cardiovascular: Cardiovascular: Reports no additional cardiovascular complaints Respiratory: Respiratory: Reports no additional respiratory complaints Gastrointestinal: Gastrointestinal: Reports no additional gastrointestinal complaints Genitourinary: Genitourinary: Reports no additional male genitourinary complaints Musculoskeletal: Musculoskeletal: Reports arthralgias and Reports joint swelling [facility] Medical History Opioid use disorder Cocaine use disorder, moderate, dependence Pertinent family history: No family history of early CAD Social History Advance Directives: No Advance Directives Information Provided: No Do you have a plan to hurt others: No Plan Meds Allergies Allergy/AdvReac Type Severity Reaction Status Date / Time No Known Allergies Allergy Verified 01/28/24 20:55 Active Medications: Current Medications Piperacillin Sod/Tazobactam (Sod 3.375 gm/ Sodium Chloride) 50 mls @ 100 mls/hr IV ONCE ONE Stop: 01/28/24 23:14 Vancomycin HCl 1,500 mg/ (Sodium Chloride) 500 mls @ 333.333 mls/hr IV ONCE ONE Stop: 01/29/24 00:14 Sodium Chloride (Ns) 1,000 mls @ 999 mls/hr IV .Q1H1M ONE Stop: 01/28/24 23:55 Home Medications ?Medication ?Instructions ?Recorded ?Confirmed ?Last Taken ?Type buprenorphine 8 mg-naloxone 2 mg 1 film sublingual TID 12/12/23 12/12/23 Unknown History sublingual film (Suboxone) Physical Exam 2 Vital Signs and Narrative: Vital Signs: Last Vital Signs Temp 98.4 F 01/28/24 20:54 Pulse 86 01/28/24 20:54 Resp 16 01/28/24 20:54 BP 135/83 01/28/24 20:54 Pulse Ox 97 01/28/24 20:54 O2 Del Method Room Air 01/28/24 20:54 BMI result Body Mass Index 21.0 Middle-aged male lying in bed in no distress Neck supple, no JVD Regular rate and rhythm, S1-S2 heard Regular breath sounds bilaterally, no wheezing or crackles appreciated Abdomen soft nontender, no guarding, no rigidity Patient is awake, alert and oriented to self, place, time and person ; no focal motor deficit Psych: Normal mood Right hand with diffuse swelling on the dorsum with erythema, warmth and tenderness ; bilateral upper extremity with IV track shelley Results Labs 01/28/24 21:28 01/28/24 21:28 Labs: Laboratory Results - last 24 hr 01/28/24 21:28 MCV 92.8 MCH 31.6 MCHC 34.1 RDW 12.6 Plt Count 152 L MPV 10.0 Immature Gran % (Auto) 0.4 Neut % (Auto) 62.3 Lymph % (Auto) 27.0 [place] % (Auto) 7.6 Eos % (Auto) 2.2 Baso % (Auto) 0.5 Lymph # (Auto) 2.6 [place] # (Auto) 0.7 Eos # (Auto) 0.2 Baso # (Auto) 0.1 Abs Immat Gran (auto) 0.04 H Absolute Neuts (auto) 6.0 Absolute Nucleated RBC 0.000 Nucleated RBC % (auto) 0.0 ESR 2 Anion Gap 15 Estim Creat Clear Calc 86.7 Estimated GFR > 60 Random Glucose 105 Lactic Acid 2.1 H* Calcium 9.5 Total Bilirubin 1.2 H AST 62 H ALT 123 H Alkaline Phosphatase 113 C-Reactive Protein 0.12 Total Protein 7.8 Albumin 4.5 Imaging Radiologist's Impressions: Impressions Hand X-Ray 01/28/24 21:06 IMPRESSION: Soft tissue swelling along the dorsum of the hand. No radiographic evidence of osteomyelitis. If there is clinical concern, MRI is a more sensitive study. Assessment and Plan (1) Cellulitis of hand, right: Status: Acute Plan This is a 43-year-old male with pertinent history of IV drug use disorder on Suboxone who presents to the emergency department for evaluation of right hand swelling. #. Purulent cellulitis of the right hand: Will admit patient and initiate IV vancomycin due to extensive cellulitis. Reviewed x-ray of the hand. Obtaining CT to delineate underlying anatomy. Monitor for improvement. No sepsis. #. Polysubstance use disorder: Monitor for withdrawal. UDS pending. Consulted Addiction Team #. Elevated transaminases: Outpatient follow-up Med rec pending DVT prophylaxis: Lovenox Full code Admit as inpatient and will require two night minimum hospital stay for IV antibiotics (as above), which is not possible in a lesser acute setting. Quality Stroke Does the patient have a stroke diagnosis?: No VTE Prior VTE?: No VTE Risk Level:: Medical - moderate - high VTE Device Contraindication: Treatment Not Indicated VTE Drug Contraindication: N/A - Med Ordered
[2024-01-28] MEDS: Piperacillin Sodium/Tazobactam 3.375 GM in 0.9 % Sodium Chloride 50 ML IV (23:13)
[2024-01-28] MEDS: 0.9 % Sodium Chloride 1,000 ML 999 ML IV (23:14)
[2024-01-28 23:33] LABS: Reflex Lactate? Lactic Acid Added
[2024-01-28] MEDS: iohexoL 350 MG/ML 100 ML INFUS..BTL 85 ML IV (23:40)
[2024-01-29] MEDS: vancomycin HCL 1,500 MG in 0.9 % Sodium Chloride 500 ML 333.33 MG IV (00:20)
[2024-01-29] MEDS: Nicotine Polacrilex 2 MG GUM BUCCAL (00:22)
[2024-01-29] MEDS: ondansetron HCL 4 MG/2 ML VIAL IVPUSH (00:22)
[2024-01-29] MEDS: Buprenorphine/Naloxone 8/2 mg FILM 1 FILM SUBLINGUAL ×4 (00:23→21:14)
--- NOTE | 2024-01-29 00:48 | PC.NURSE ---
Report to Radha KAUFMAN in overflow for continued care.
--- NOTE | 2024-01-29 01:29 | PC.NURSE ---
received pt from main ed, pt oriented to room, a&ox3, resp with ease, no s/s of acute distress,
[2024-01-29 01:36] VITALS: BP 134/76; PULSE 64; RESP 16; TEMP 37.2; O2SAT 98
--- NOTE | 2024-01-29 01:37 | MHC.EDTECH ---
PATIENT JUST CAME OVER TO OVERFLOW FROM THE MAIN EMERGENCY ROOM ,VITALS TAKEN AND PATIENT REQUESTED FOOD ,PATIENT WAS GIVEN 2 SANDWICHES AND JESSICA YULISA FOR SNACK ,LAB CAME AND DRAW REPEATED LACTIC ,CALL ARENAS WITHIN PT RTEACH ,PLAN OF CARE CONTINUE .
--- NOTE | 2024-01-29 01:42 | PC.NURSE ---
pt given food and bertin elo
[2024-01-29 01:56] LABS: ~Lactic Acid-LAB USE ONLY 2.4 mmol/L (0.5-2.0)
--- NOTE | 2024-01-29 02:04 | PC.NURSE ---
pt c/o of itching all over. tiger text dr Velazquez, new ordered received
[2024-01-29] MEDS: diphenhydrAMINE HCL 25 MG CAPSULE PO (02:09)
[2024-01-29 02:56] LABS: Amphetamine Screen Urine Not Detected (Not Detect); Barbiturates, Urine Not Detected (Not Detect); Benzodiazepines Screen Urine Not Detected (Not Detect); Buprenorphine Scr Positive (Not Detect); Cannabinoid Screen Urine POSITIVE (Not Detect); Cocaine Screen Urine POSITIVE (Not Detect); Fentanyl, urine Not Detected (Not Detect); Methadone Screen, Urine Not Detected (Not Detect); Opiate Screen Urine Not Detected (Not Detect); Oxycodone Screen Urine Not Detected (Not Detect); Phencyclidine Screen Urine Not Detected (Not Detect)
[2024-01-29 03:36] LABS: Reflex Lactate? 2 Y
--- NOTE | 2024-01-29 04:07 | PC.NURSE ---
resting quietly on bed at this time, resp with ease, no s/s of any distress
[2024-01-29 04:19] LABS: MANUAL DIFF FLAG NO
[2024-01-29 04:29] LABS: ~Lactic Acid-LAB USE ONLY 1.1 mmol/L (0.5-2.0)
[2024-01-29 04:30] LABS: Basophils Percent Auto 0.4 % (0-2); Eosinophils Absolute Auto 0.2 X10*3/uL (0.0-0.4); Hematocrit 38.8 % (42.0-52.0); Hemoglobin 13.7 g/dl (14.0-18.0); Imm Gran Abs Auto 0.03 X10*3/uL (0.00-0.03); Imm Gran Pct Auto 0.4 % (0.0-0.4); Lymphocytes Absolute Auto 2.1 X10*3/uL (1.2-4.9); Lymphocytes Percent Auto 28.1 % (20-40); Mean Corpuscular HGB Conc 35.3 g/dl (31.0-36.0); Mean Corpuscular Hemoglobin 31.8 pg (27.0-33.0); Mean Platelet Volume 9.9 fL (9.4-12.4); Monocytes Absolute Auto 0.7 X10*3/uL (0.1-1.2); Monocytes Percent Auto 9.7 % (2-11); Neutrophils Absolute Auto 4.4 x10*3/uL (2.0-8.3); Neutrophils Percent Auto 58.4 % (45-73); Platelet Count 124 X10*3/uL (160-400); Red Blood Count 4.31 X10*6/uL (4.60-5.80); Red Cell Distribution Width 12.5 % (11.0-16.0); White Blood Count 7.6 X10*3/uL (4.8-10.8)
[2024-01-29 04:35] LABS: Anion Gap 10 (12-20); Blood Urea Nitrogen 15 mg/dL (9-16); Calcium 8.5 mg/dL (8.4-10.2); Carbon Dioxide 27 mmol/L (22-29); Chloride 106 mmol/L (96-108); Creatinine Clr Calc Pharmacy 116.1; Estimated Glomerular Filt Rate > 60; Glucose Random 116 mg/dL (60-115); Potassium 3.7 mmol/L (3.3-5.1); Sodium 139 mmol/L (135-145)
[2024-01-29 06:32] VITALS: BP 127/80; PULSE 64; RESP 16; TEMP 37; O2SAT 97
--- NOTE | 2024-01-29 06:57 | PHA.PROG ---
Admission Date/Time: January 28, 2024 23:03 Indication: skin Weight in k.436 kg Adjusted body weight in Kg: [place] body weight in Kg: Obesity Dosing Indication % IBW: Serum Creatinine - Last 168 Hours 01/28/24 01/29/24 21:28 04:13 Creatinine 0.99 0.74 Estimated CrCl and GFR - Last 168 Hours 01/28/24 01/29/24 21:28 04:13 Estim Creat Clear Calc 86.7 116.1 Estimated GFR > 60 > 60 Vancomycin Loading Dose: 1500mg Current Vancomycin Dosing Regimen: 1000mg Q12H Vancomycin Monitoring using AUC goal of 400 - 600 range with trough as surrogate marker: 454mg/L Date and Time for next Vancomycin Level to be drawn: 01/29 @0900 Pharmacist Comments on Vancomycin Plan: predicted trough of 13.1mg/L; will adjust acoordingly Vancomycin dosing will take advantage of [employer] as a clinical decision support tool that uses Bayesian modeling to calculate individual patient's pharmacokinetic parameters and forecast the patient's drug concentration time course with the target goal AUC 24 range of 400 - 600 mg/L/hr.
[2024-01-29] MEDS: 0.9 % Sodium Chloride Flush 3 ML SYRINGE IVFLUSH ×2 (09:31→17:23)
[2024-01-29] MEDS: Enoxaparin Sodium 40 MG/0.4 ML SYRINGE SUBCUT (09:31)
--- NOTE | 2024-01-29 09:32 | MHC.RECOVRN ---
Received referral for consult on pt. due to polysubstance use disorder. Review of chart completed and report received from nurse Barriga. Pt is resting comfortably in bed and is difficult to awaken but once awake is answering questions appropriately. Pt is prescribed suboxone 8-2mg TID from [facility] in [place]. This was verified by this conventional underwriter on [place]. Pt did receive a one time dose of suboxone 8mg last evening around midnight. Pt currently denies any current W/D sx and none noted. T/W spoke with KEYONNA Britton and requested suboxone be ordered 8 mg TID pt reports he takes at 8AM, 4PM and 8PM. Will F/U with pt for full assessment once he is on floor and feeling a little better. Reports to ACS team and Kaelyn Boyer ENTERPRISE ARCHITECT MANAGER
--- NOTE | 2024-01-29 10:54 | HO.PM.IMPN ---
Subjective Subjective Date of Service: 01/29/24 Interval History: Seen and examined this morning Follow-up for right hand cellulitis/abscess Patient denies fever, chills, reporting pain in the right hand Review of Systems Review of Systems: Yes all other systems are reviewed and are negative Constitutional Constitutional: Denies chills and Denies fever(s) Cardiovascular Cardiovascular: Denies chest pain, Denies palpitations and Denies dyspnea Respiratory Respiratory: Denies cough and Denies dyspnea Endocrine Endocrine: Denies palpitations Physical Exam Vital Signs: Vital Signs: Last Vital Signs Temp 98.6 F 01/29/24 06:32 Pulse 64 01/29/24 06:32 Resp 16 01/29/24 06:32 BP 127/80 01/29/24 06:32 Pulse Ox 97 01/29/24 06:32 O2 Del Method Room Air 01/29/24 06:32 BMI result Body Mass Index 21.0 Const: General: no acute distress, alert and awake Nutritional Appearance: average body habitus Orientation/consciousness: patient oriented x3 Resp: Effort & Inspection: normal respiratory effort, able to speak in complete sentences, no respiratory distress and no use of accessory muscles Auscultation: clear to auscultation bilaterally Cardio: Rate: regular rate GI: Inspection: No distended Palpation (GI): Soft to palpation and nontender Skin: Other: right hand swelling; area of fluctuance dorsal surface around third finger Neuro: General: patient oriented x3, moves all extremities and CN's II-XI intact bilaterally Extrem: General: Yes no pedal edema Objective Data Active Medications Acetaminophen (Acetaminophen 325 Mg Tablet) 650 mg PO Q6H PRN PRN Reason: Pain, Mild (Pain Scale 1-3), fever or headache Buprenorphine/Naloxone (Buprenorphine/Naloxone 8/2 Mg Film) 1 film SUBLINGUAL TID [facility] Calcium Carbonate (Calcium Carbonate 750 Mg Tab.Chew) 750 mg PO Q4H PRN PRN Reason: Heartburn Enoxaparin Sodium (Enoxaparin Sodium 40 Mg/0.4 Ml Syringe) 40 mg SUBCUT Q24H [facility] Last Admin: 01/29/24 09:31 Dose: 40 mg Documented By: ALLI Vancomycin HCl 1,000 mg/ (Sodium Chloride) 270 mls @ 270 mls/hr IV Q12H [facility] Magnesium Hydroxide (Milk Of Magnesia 30 Ml Oral.Susp) 30 ml PO DAILY PRN PRN Reason: Constipation Melatonin (Melatonin 3 Mg Tablet) 6 mg PO BEDTIME PRN PRN Reason: Insomnia Nicotine Polacrilex (Nicotine Polacrilex 2 Mg Gum) 2 mg [place]AL Q2H PRN PRN Reason: Nicotine Cravings Last Admin: 01/29/24 00:22 Dose: 2 mg Documented By: JAKUB Ondansetron HCl (Ondansetron Hcl 4 Mg/2 Ml Vial) 4 mg IVPUSH Q8H PRN PRN Reason: Nausea and Vomiting Last Admin: 01/29/24 00:22 Dose: 4 mg Documented By: JAKUB Pharmacy Consult (Consult Rx Vancomycin Dosing) 1 each MISCELLANE DAILY PRN PRN Reason: Consult order Sodium Chloride (0.9 % Sodium Chloride Flush 3 Ml Syringe) [facility] Last Admin: 01/29/24 09:31 Dose: 3 ml Documented By: ALLI Labs 01/29/24 04:13 01/29/24 04:13 Labs: Laboratory Results - last 24 hr 01/28/24 01/29/24 01/29/24 21:28 01:34 02:38 MCV 92.8 MCH 31.6 MCHC 34.1 RDW 12.6 Plt Count 152 L MPV 10.0 Immature Gran % (Auto) 0.4 Neut % (Auto) 62.3 Lymph % (Auto) 27.0 [place] % (Auto) 7.6 Eos % (Auto) 2.2 Baso % (Auto) 0.5 Lymph # (Auto) 2.6 [place] # (Auto) 0.7 Eos # (Auto) 0.2 Baso # (Auto) 0.1 Abs Immat Gran (auto) 0.04 H Absolute Neuts (auto) 6.0 Absolute Nucleated RBC 0.000 Nucleated RBC % (auto) 0.0 ESR 2 Anion Gap 15 Estim Creat Clear Calc 86.7 Estimated GFR > 60 Random Glucose 105 Lactic Acid 2.1 H* Lactic Acid F/U @ 2Hr 2.4 H* Lactic Acid F/U @ 4Hr Calcium 9.5 Total Bilirubin 1.2 H AST 62 H ALT 123 H Alkaline Phosphatase 113 C-Reactive Protein 0.12 Total Protein 7.8 Albumin 4.5 Urine Opiates Screen Not Detected Ur Buprenorphine Scrn Positive H Ur Oxycodone Screen Not Detected Urine Methadone Screen Not Detected Urine Fentanyl Screen Not Detected Ur Barbiturates Screen Not Detected Ur Phencyclidine Scrn Not Detected Ur Amphetamines Screen Not Detected U Benzodiazepines Scrn Not Detected Urine Cocaine Screen POSITIVE H U Marijuana (THC) Screen POSITIVE H 01/29/24 04:13 MCV 90.0 MCH 31.8 MCHC 35.3 RDW 12.5 Plt Count 124 L MPV 9.9 Immature Gran % (Auto) 0.4 Neut % (Auto) 58.4 Lymph % (Auto) 28.1 [place] % (Auto) 9.7 Eos % (Auto) 3.0 Baso % (Auto) 0.4 Lymph # (Auto) 2.1 [place] # (Auto) 0.7 Eos # (Auto) 0.2 Baso # (Auto) 0.0 Abs Immat Gran (auto) 0.03 Absolute Neuts (auto) 4.4 Absolute Nucleated RBC 0.000 Nucleated RBC % (auto) 0.0 ESR Anion Gap 10 L Estim Creat Clear Calc 116.1 Estimated GFR > 60 Random Glucose 116 H Lactic Acid Lactic Acid F/U @ 2Hr Lactic Acid F/U @ 4Hr 1.1 Calcium 8.5 D Total Bilirubin AST ALT Alkaline Phosphatase C-Reactive Protein Total Protein Albumin Urine Opiates Screen Ur Buprenorphine Scrn Ur Oxycodone Screen Urine Methadone Screen Urine Fentanyl Screen Ur Barbiturates Screen Ur Phencyclidine Scrn Ur Amphetamines Screen U Benzodiazepines Scrn Urine Cocaine Screen U Marijuana (THC) Screen Assessment and Plan (1) Cellulitis of hand, right: Status: Acute (2) Opioid use disorder: Status: Acute Plan This is a 43-year-old male with pertinent history of IV drug use disorder on Suboxone who presents to the emergency department for evaluation of right hand swelling. Right hand cellulitis with abscess does not meet sepsis criteria IV vancomycin Seen by ortho, plan for I&D in OR in am (01/29), npo at midnight Blood cultures pending Polysubstance use disorder: seen by Addiction Team Continue Suboxone Elevated transaminases: lower then previous Outpatient follow-up Acute lactic acidosis Not due to sepsis Resolved with IV fluid Chronic thrombocytopenia Follow CBC Tobacco dependence Smoking cessation advised NRT DVT prophylaxis: Lovenox Full code requires ongoing hospital stay for IV antibiotics (as above), and surgical intervention which is not possible in a lesser acute setting. Quality Stroke Does the patient have a stroke diagnosis?: No VTE Prior VTE?: No VTE Risk Level:: Medical - moderate - high VTE Device Contraindication: Treatment Not Indicated VTE Drug Contraindication: N/A - Med Ordered
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
--- NOTE | 2024-01-29 10:56 | PHA.MEDREC ---
Addendum entered by Juliane Mcintosh RPh 01/29/24 12:19: MED REC DONE BY [employer], REVIEWED BY [facility] Original Note: Pharmacy Consult ? Medication Reconciliation Pharmacy has completed the medication reconciliation.
[2024-01-29 11:18] VITALS: BP 147/83; PULSE 80; RESP 16; TEMP 37.1
[2024-01-29] MEDS: vancomycin HCL 1,000 MG in 0.9 % Sodium Chloride 250 ML 270 MG IV ×2 (11:32→22:56)
[2024-01-29 14:20] VITALS: BP 135/75; PULSE 74; RESP 20; TEMP 37.3; O2SAT 98
[2024-01-29 21:11] VITALS: BP 138/63; PULSE 73; RESP 18; TEMP 36.9; O2SAT 95
[2024-01-29] MEDS: Acamprosate Calcium 333 MG TABLET.DR 666 MG PO (21:13)
[2024-01-30] VITALS (10 sets, daily range): BP systolic 123–160; BP diastolic 72–96; PULSE 60–88; RESP 16–18; TEMP 36.4–37.1; O2SAT 95–100; BMI 21.0
[2024-01-30] MEDS: 0.9 % Sodium Chloride Flush 3 ML SYRINGE IVFLUSH ×2 (07:14→21:07)
[2024-01-30] MEDS: Buprenorphine/Naloxone 8/2 mg FILM 1 FILM SUBLINGUAL ×3 (08:02→21:05)
--- NOTE | 2024-01-30 09:58 | MHC.CM.PN ---
PT LIVES WITH GIRLFRIEND IS INDEPENDENT HAS A RIDE HOME DC PLAN [facility] SERVIES
[2024-01-30 10:31] LABS: Estimated Glomerular Filt Rate > 60
[2024-01-30 10:32] LABS: Vancomycin Random 7.6 mcg/mL (15-20)
--- NOTE | 2024-01-30 10:52 | HO.PM.IMPN ---
Subjective Subjective Date of Service: 01/30/24 Interval History: Seen and examined this morning Follow-up for right hand cellulitis/abscess Patient denies fever, chills, reporting pain in the right hand Review of Systems Review of Systems: Yes all other systems are reviewed and are negative Constitutional Constitutional: Denies chills and Denies fever(s) Cardiovascular Cardiovascular: Denies chest pain, Denies palpitations and Denies dyspnea Respiratory Respiratory: Denies cough and Denies dyspnea Endocrine Endocrine: Denies palpitations Physical Exam Vital Signs: Vital Signs: Last Vital Signs Temp 97.5 F 01/30/24 08:00 Pulse 66 01/30/24 08:00 Resp 18 01/30/24 08:00 BP 123/72 01/30/24 08:00 Pulse Ox 96 01/30/24 08:00 O2 Del Method Room Air 01/30/24 08:00 BMI result Body Mass Index 21.0 Appearing in no acute distress lung sounds are clear to auscultation heart regular rate rhythm, clear S1, S2 positive bowel sounds, abdomen is soft, nontender neuro patient is alert x3, no focal deficits Right hand abscess with erythema and edema Objective Data Active Medications Acamprosate (Acamprosate Calcium 333 Mg Tablet.Dr) 666 mg PO TID [facility] Last Admin: 01/30/24 10:35 Dose: Not Given Documented By: SYEDA Non-Admin Reason: Patient Refused Acetaminophen (Acetaminophen 325 Mg Tablet) 650 mg PO Q6H PRN PRN Reason: Pain, Mild (Pain Scale 1-3), fever or headache Buprenorphine/Naloxone (Buprenorphine/Naloxone 8/2 Mg Film) 1 film SUBLINGUAL TID [facility] Last Admin: 01/30/24 08:02 Dose: 1 film Documented By: SYEDA Calcium Carbonate (Calcium Carbonate 750 Mg Tab.Chew) 750 mg PO Q4H PRN PRN Reason: Heartburn Enoxaparin Sodium (Enoxaparin Sodium 40 Mg/0.4 Ml Syringe) 40 mg SUBCUT Q24H [facility] Last Admin: 01/30/24 08:02 Dose: 40 mg Documented By: SYEDA Vancomycin HCl 1,000 mg/ (Sodium Chloride) 270 mls @ 270 mls/hr IV Q12H [facility] Last Infusion: 01/30/24 00:00 Dose: Infused Documented By: CEDRICK Magnesium Hydroxide (Milk Of Magnesia 30 Ml Oral.Susp) 30 ml PO DAILY PRN PRN Reason: Constipation Melatonin (Melatonin 3 Mg Tablet) 6 mg PO BEDTIME PRN PRN Reason: Insomnia Nicotine Polacrilex (Nicotine Polacrilex 2 Mg Gum) 2 mg BUCCAL Q2H PRN PRN Reason: Nicotine Cravings Last Admin: 01/29/24 00:22 Dose: 2 mg Documented By: JAKUB Ondansetron HCl (Ondansetron Hcl 4 Mg/2 Ml Vial) 4 mg IVPUSH Q8H PRN PRN Reason: Nausea and Vomiting Last Admin: 01/29/24 00:22 Dose: 4 mg Documented By: JAKUB Pharmacy Consult (Consult Rx Vancomycin Dosing) 1 each MISCELLANE DAILY PRN PRN Reason: Consult order Sodium Chloride (0.9 % Sodium Chloride Flush 3 Ml Syringe) 3 ml IVFLUSH QSHIFT [facility] Last Admin: 01/30/24 07:14 Dose: 3 ml Documented By: SYEDA Labs 01/29/24 04:13 01/30/24 09:41 Labs: Laboratory Results - last 24 hr 01/30/24 09:41 Estim Creat Clear Calc 113.0 Estimated GFR > 60 Random Vancomycin 7.6 L Microbiology Microbiology Results: Microbiology 01/28/24 23:11 Blood Culture - Preliminary Blood - Venous No growth after 24 hours. 01/28/24 23:02 Blood Culture - Preliminary Blood - Venous No growth after 24 hours. Assessment and Plan (1) Cellulitis of hand, right: Status: Acute (2) Opioid use disorder: Status: Acute Plan This is a 43-year-old male with pertinent history of IV drug use disorder on Suboxone who presents to the emergency department for evaluation of right hand swelling. Right hand cellulitis with abscess does not meet sepsis criteria IV vancomycin plan for I&D today Blood cultures neg after 24 hrs Polysubstance use disorder seen by Addiction Team Continue Suboxone Elevated transaminases lower then previous Outpatient follow-up Acute lactic acidosis Not due to sepsis Resolved with IV fluid Chronic thrombocytopenia Follow CBC Tobacco dependence Smoking cessation advised NRT DVT prophylaxis: Gala Attending Dr. Sierra Full code requires ongoing hospital stay for IV antibiotics (as above), and surgical intervention which is not possible in a lesser acute setting. Quality Stroke Does the patient have a stroke diagnosis?: No VTE Prior VTE?: No VTE Risk Level:: Medical - moderate - high VTE Device Contraindication: Treatment Not Indicated VTE Drug Contraindication: N/A - Med Ordered
--- NOTE | 2024-01-30 11:00 | HE.PHANOTE ---
RE VANCO TROUGH LOW AT 7.6 AND RENAL FUNCTION STABLE WITH CRCL 113. WILL INCREASE DOSE TO 1500 Q12 TO ACHIEVE AUC 512.
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
[2024-01-30] MEDS: vancomycin HCL 1,500 MG in 0.9 % Sodium Chloride 500 ML 333.33 MG IV (11:38)
--- NOTE | 2024-01-30 13:09 | P.CONAN_ITS ---
[facility] Active Problems Active Problems: All Active Problems Hand abrasion (Acute) Abscess of dorsum of right hand (Acute) Cellulitis of hand, right (Acute) Opioid use disorder, moderate, in early remission, on maintenance therapy, dependence (Acute) Alcohol use disorder, moderate, dependence (Acute) Mood disorder (Acute) Opioid use disorder (Acute) Cocaine use disorder, moderate, dependence (Acute) Past Medical History Medical History (Updated 01/30/24 @ 12:53 by KEYONNA Owens) Opioid use disorder Cocaine use disorder, moderate, dependence Family History Family history of problems with anesthesia: No Surgical History Surgical History (Updated 01/30/24 @ 11:31 by Jeannine Rodriguez RN) History of ankle surgery Hx of appendectomy Hx of knee surgery History of Problems with Anesthesia: No Social History Social History Household Members: Significant Other Housing: Apartment Do you presently have visiting nurse or other home services: No Patient Tobacco Use Status: Current everyday Tobacco user Tobacco use type: Cigarette Cigarettes Per Day: 20 e-Cigarette/Vaping Use: Currently Using Substance Use Type: Marijuana service: No Meds Allergies Allergy/AdvReac Type Severity Reaction Status Date / Time No Known Allergies Allergy Verified 01/28/24 20:55 Active Medications: Current Medications Acamprosate (Acamprosate Calcium 333 Mg Tablet.Dr) 666 mg PO TID [facility] Last Admin: 01/30/24 10:35 Dose: Not Given Acetaminophen (Acetaminophen 325 Mg Tablet) 650 mg PO Q6H PRN PRN Reason: Pain, Mild (Pain Scale 1-3), fever or headache Buprenorphine/Naloxone (Buprenorphine/Naloxone 8/2 Mg Film) 1 film SUBLINGUAL TID [facility] Last Admin: 01/30/24 08:02 Dose: 1 film Calcium Carbonate (Calcium Carbonate 750 Mg Tab.Chew) 750 mg PO Q4H PRN PRN Reason: Heartburn Enoxaparin Sodium (Enoxaparin Sodium 40 Mg/0.4 Ml Syringe) 40 mg SUBCUT Q24H [facility] Last Admin: 01/30/24 08:02 Dose: 40 mg Vancomycin HCl 1,500 mg/ (Sodium Chloride) 500 mls @ 333.333 mls/hr IV Q12H [facility] Last Admin: 01/30/24 11:38 Dose: 333.33 mls/hr Magnesium Hydroxide (Milk Of Magnesia 30 Ml Oral.Susp) 30 ml PO DAILY PRN PRN Reason: Constipation Melatonin (Melatonin 3 Mg Tablet) 6 mg PO BEDTIME PRN PRN Reason: Insomnia Nicotine Polacrilex (Nicotine Polacrilex 2 Mg Gum) 2 mg BUCCAL Q2H PRN PRN Reason: Nicotine Cravings Last Admin: 01/29/24 00:22 Dose: 2 mg Ondansetron HCl (Ondansetron Hcl 4 Mg/2 Ml Vial) 4 mg IVPUSH Q8H PRN PRN Reason: Nausea and Vomiting Last Admin: 01/29/24 00:22 Dose: 4 mg Pharmacy Consult (Consult Rx Vancomycin Dosing) 1 each MISCELLANE DAILY PRN PRN Reason: Consult order Sodium Chloride (0.9 % Sodium Chloride Flush 3 Ml Syringe) 3 ml IVFLUSH QSHIFT [facility] Last Admin: 01/30/24 07:14 Dose: 3 ml Home Medications ?Medication ?Instructions ?Recorded ?Confirmed ?Last Taken ?Type buprenorphine 8 mg-naloxone 2 mg 1 film sublingual 12/12/23 01/29/24 01/28/24 History sublingual film (Suboxone) TID@0800,1600,2000 Exam Height,Weight and Vital Signs: Height 5 ft 9 in Weight 64.41 kg Last Vital Signs Temp 98.0 F 01/30/24 11:26 Pulse 66 01/30/24 11:26 Resp 16 01/30/24 11:26 BP 133/81 01/30/24 11:26 Pulse Ox 95 01/30/24 11:26 O2 Del Method Room Air 01/30/24 11:26 Pertinent Lab Results Pertinent Lab Results: Laboratory Tests 01/28/24 01/29/24 01/29/24 21:28 01:34 02:38 WBC 9.7 RBC 5.12 Hgb 16.2 Hct 47.5 MCV 92.8 MCH 31.6 MCHC 34.1 RDW 12.6 Plt Count 152 L MPV 10.0 Immature Gran % (Auto) 0.4 Neut % (Auto) 62.3 Lymph % (Auto) 27.0 Shackelford % (Auto) 7.6 Eos % (Auto) 2.2 Baso % (Auto) 0.5 Lymph # (Auto) 2.6 [place]ack[place]ord # (Auto) 0.7 Eos # (Auto) 0.2 Baso # (Auto) 0.1 Abs Immat Gran (auto) 0.04 H Absolute Neuts (auto) 6.0 Absolute Nucleated RBC 0.000 Nucleated RBC % (auto) 0.0 ESR 2 Sodium 141 Potassium 3.4 Chloride 105 Carbon Dioxide 24 Anion Gap 15 BUN 16 Creatinine 0.99 Estim Creat Clear Calc 86.7 Estimated GFR > 60 Random Glucose 105 Lactic Acid 2.1 H* Lactic Acid F/U @ 2Hr 2.4 H* Lactic Acid F/U @ 4Hr Calcium 9.5 Total Bilirubin 1.2 H AST 62 H ALT 123 H Alkaline Phosphatase 113 C-Reactive Protein 0.12 Total Protein 7.8 Albumin 4.5 Random Vancomycin Urine Opiates Screen Not Detected Ur Buprenorphine Scrn Positive H Ur Oxycodone Screen Not Detected Urine Methadone Screen Not Detected Urine Fentanyl Screen Not Detected Ur Barbiturates Screen Not Detected Ur Phencyclidine Scrn Not Detected Ur Amphetamines Screen Not Detected U Benzodiazepines Scrn Not Detected Urine Cocaine Screen POSITIVE H U Marijuana (THC) Screen POSITIVE H 01/29/24 01/30/24 04:13 09:41 WBC 7.6 RBC 4.31 L Hgb 13.7 L Hct 38.8 L MCV 90.0 MCH 31.8 MCHC 35.3 RDW 12.5 Plt Count 124 L MPV 9.9 Immature Gran % (Auto) 0.4 Neut % (Auto) 58.4 Lymph % (Auto) 28.1 Shackelford % (Auto) 9.7 Eos % (Auto) 3.0 Baso % (Auto) 0.4 Lymph # (Auto) 2.1 [place]ackelford # (Auto) 0.7 Eos # (Auto) 0.2 Baso # (Auto) 0.0 Abs Immat Gran (auto) 0.03 Absolute Neuts (auto) 4.4 Absolute Nucleated RBC 0.000 Nucleated RBC % (auto) 0.0 ESR Sodium 139 Potassium 3.7 Chloride 106 Carbon Dioxide 27 Anion Gap 10 L BUN 15 Creatinine 0.74 0.76 Estim Creat Clear Calc 116.1 113.0 Estimated GFR > 60 > 60 Random Glucose 116 H Lactic Acid Lactic Acid F/U @ 2Hr Lactic Acid F/U @ 4Hr 1.1 Calcium 8.5 D Total Bilirubin AST ALT Alkaline Phosphatase C-Reactive Protein Total Protein Albumin Random Vancomycin 7.6 L Urine Opiates Screen Ur Buprenorphine Scrn Ur Oxycodone Screen Urine Methadone Screen Urine Fentanyl Screen Ur Barbiturates Screen Ur Phencyclidine Scrn Ur Amphetamines Screen U Benzodiazepines Scrn Urine Cocaine Screen U Marijuana (THC) Screen Airway Mallampati Class: II (edentulous on top, missing some on the bittom, denies anything loose) TM Dist: >3cm Neck ROM: Full Heart: rrr Lungs: cta Assessment and Plan Assessment Anesthesia Assessment: Anesthesia Plan Discussed and Chart Reviewed Final Anesthetic Review Family History of Problems with Anesthesia: No History of Problems with Anesthesia: No NPO: Yes ASA Class: II Final Preanesthetic Review: No Changes in Pt Med Stat, Meds/Allgs Chart Reviewed and Consent Obtained/Reviewed Patient Risk: Low Procedure Risk: Low Anesthetic Plan Anesthetic Plan: GA Disposition: Standard PACU
--- NOTE | 2024-01-30 14:22 | MHC.SHP ---
Pre-Procedural Eval Section A - 24 Hr Update-Section A only Date of Service: 01/30/24 The patient is an INPATIENT: No Changes since office visit: No Cold of Flu in the past 2 weeks, No New Medical Problems, No Changes in Medication and No Patient answered all questions The patient has been examined within 24 hours of the surgical procedure. The History & Physical has been completed within 30 days and I have reviewed it.: Yes Section B - Complete if H&P > 30 days Chief Complaint: Hand infection Allergies: Allergies Allergy/AdvReac Type Severity Reaction Status Date / Time No Known Allergies Allergy Verified 01/28/24 20:55 Plan I have reviewed the history and physical and performed a pertinent physical examination on my patient. No changes have occurred unless specified. Time Spent With Patient Time: Total time managing care of this patient today ____ minutes.
[2024-01-30] MEDS: Acetaminophen 1,000 MG/100 ML PIGGYBACK 400 MG IV (15:49)
--- NOTE | 2024-01-30 15:58 | MHC.RECOVRN ---
Pt in OR when t/w attempted to meet and discuss [facility] supports. Resources left at bedside with t/w contact information.
[2024-01-30] MEDS: traMADoL HCL 50 MG TABLET PO (20:10)
[2024-01-30] MEDS: Acamprosate Calcium 333 MG TABLET.DR 666 MG PO (21:05)
[2024-01-31] VITALS: BP 130/73; PULSE 68; RESP 16; TEMP 36.3; O2SAT 99
[2024-01-31] MEDS: vancomycin HCL 1,500 MG in 0.9 % Sodium Chloride 500 ML 333.33 MG IV ×2 (00:09→11:43)
[2024-01-31 04:00] VITALS: BP 133/74; PULSE 75; RESP 18; TEMP 36.9; O2SAT 98
[2024-01-31] MEDS: Acetaminophen 325 MG TABLET 650 MG PO (04:14)
[2024-01-31] MEDS: traMADoL HCL 50 MG TABLET PO ×2 (04:14→21:18)
[2024-01-31 06:37] LABS: Creatinine Clr Calc Pharmacy 111.5; Estimated Glomerular Filt Rate > 60
[2024-01-31 07:53] VITALS: BP 132/68; PULSE 73; RESP 18; TEMP 36.4; O2SAT 96
[2024-01-31] MEDS: Buprenorphine/Naloxone 8/2 mg FILM 1 FILM SUBLINGUAL ×3 (08:04→21:04)
[2024-01-31] MEDS: 0.9 % Sodium Chloride Flush 3 ML SYRINGE IVFLUSH ×2 (08:04→13:18)
--- NOTE | 2024-01-31 08:40 | HO.POSTANES ---
Post Anesthesia Evaluation Post Anesthesia Evaluation Date of Service: 01/30/24 Vital Signs: Vital Signs Temp Pulse Resp BP Pulse Ox O2 Del Method 01/31/24 07:53 97.5 F 73 18 132/68 96 Room Air 01/31/24 04:00 98.4 F 75 18 133/74 98 Room Air 01/31/24 00:00 97.4 F 68 16 130/73 99 Room Air Anesthesia: General Mental Status: Awake Pain Control: Satisfactory Nausea/Vomiting: None Hydration: Adequate Anesthesia-Related Issues: No Anes. Related Issues
--- NOTE | 2024-01-31 08:44 | PM.PNORT ---
Subjective Subjective Date of Service: 01/31/24 Interval history: Patient is a 43-year-old male who is postop day 1 status post I & D of right dorsal hand abscess. Today, the patient reports that he is still experiencing significant edema and discomfort in the dorsal right hand. Patient reports that he has this been moving his fingers on his right hand since being discharged from surgery, but states that he may not be have him doing it as much as we would like. The patient also inquires if the drains are what is causing his remaining discomfort, as he has a history of having to have drains placed in his hand and this was his experience last time. Denies any numbness and tingling. Patient has no other acute complaints or concerns at this time Physical Exam Vital Signs: Vital Signs: Last Vital Signs Temp 97.5 F 01/31/24 07:53 Pulse 73 01/31/24 07:53 Resp 18 01/31/24 07:53 BP 132/68 01/31/24 07:53 Pulse Ox 96 01/31/24 07:53 O2 Del Method Room Air 01/31/24 07:53 BMI result Body Mass Index 21.0 Extrem: Other: Patient is alert, oriented, and in no acute distress. Neuro: Median, ulnar, radial nerves motor and sensory intact and sensation is normal to the tips of all digits. Vascular: Cap refill brisk Pain: Patient reports tenderness to palpation about the dorsal right hand, primarily focused about the incision site Patient reports that his pain decreased significantly after removal of drains. ROM: Patient has limited range of motion of the right hand due to pain Patient is able to extend fully, however he is unable to make a closed fist at this time Skin: Incision site with a single suture placed noted on the dorsal hand over the distal 3rd metacarpal shaft General: There remains significant edema of the dorsal right hand, slightly worsened from prior to surgery There is also still significant erythema over the dorsal hand, although this has slightly improved since surgery Psych: Appears grossly normal Affect normal Attitude cooperative Procedures Date of Service Date of Service: 01/31/24 Progress Note: A&P Assessment and plan (1) Abscess of dorsum of right hand: Status: Acute Plan 1. Right dorsal hand abscess status post irrigation and debridement DOS 01/30/2024 Patient is recovering adequately postoperatively Patient is educated about the typical recovery course Drains are pulled today, dressing is changed Patient is educated that increased edema can be normal after surgery OT ordered today for range of motion of the right hand Continue with IV antibiotics and all of the recommendations per Medicine Time Spent With Patient Time: Total time managing care of this patient today ____ minutes. Quality Stroke Does the patient have a stroke diagnosis?: No VTE Prior VTE?: No VTE Risk Level:: Medical - moderate - high VTE Device Contraindication: Treatment Not Indicated VTE Drug Contraindication: N/A - Med Ordered
[2024-01-31 10:39] LABS: Vancomycin Random 8.3 mcg/mL (15-20)
--- NOTE | 2024-01-31 11:00 | HO.PM.IMPN ---
Subjective Subjective Date of Service: 01/31/24 Interval History: Seen and examined this morning Follow-up for right hand cellulitis/abscess Patient denies fever, chills, reporting pain in the right hand Review of Systems Review of Systems: Yes all other systems are reviewed and are negative Constitutional Constitutional: Denies chills and Denies fever(s) Cardiovascular Cardiovascular: Denies chest pain, Denies palpitations and Denies dyspnea Respiratory Respiratory: Denies cough and Denies dyspnea Endocrine Endocrine: Denies palpitations Physical Exam Vital Signs: Vital Signs: Last Vital Signs Temp 97.5 F 01/31/24 07:53 Pulse 73 01/31/24 07:53 Resp 18 01/31/24 07:53 BP 132/68 01/31/24 07:53 Pulse Ox 96 01/31/24 07:53 O2 Del Method Room Air 01/31/24 07:53 BMI result Body Mass Index 21.0 Appearing in no acute distress lung sounds are clear to auscultation heart regular rate rhythm, clear S1, S2 positive bowel sounds, abdomen is soft, nontender neuro patient is alert x3, no focal deficits Dressing to right hand Objective Data Active Medications Acamprosate (Acamprosate Calcium 333 Mg Tablet.) 666 mg PO TID [facility] Last Admin: 01/31/24 07:16 Dose: Not Given Documented By: SYEDA Non-Admin Reason: Patient Refused Acetaminophen (Acetaminophen 325 Mg Tablet) 650 mg PO Q6H PRN PRN Reason: Pain, Mild (Pain Scale 1-3), fever or headache Last Admin: 01/31/24 04:14 Dose: 650 mg Documented By: MARIA INES Buprenorphine/Naloxone (Buprenorphine/Naloxone 8/2 Mg Film) 1 film SUBLINGUAL TID [facility] Last Admin: 01/31/24 08:04 Dose: 1 film Documented By: SYEDA Calcium Carbonate (Calcium Carbonate 750 Mg Tab.Chew) 750 mg PO Q4H PRN PRN Reason: Heartburn Enoxaparin Sodium (Enoxaparin Sodium 40 Mg/0.4 Ml Syringe) 40 mg SUBCUT Q24H [facility] Last Admin: 01/31/24 07:17 Dose: Not Given Documented By: SYEDA Non-Admin Reason: Patient Refused Vancomycin HCl 1,500 mg/ (Sodium Chloride) 500 mls @ 333.333 mls/hr IV Q12H [facility] Last Infusion: 01/31/24 01:48 Dose: Infused Documented By: MARIA INES Magnesium Hydroxide (Milk Of Magnesia 30 Ml Oral.Susp) 30 ml PO DAILY PRN PRN Reason: Constipation Melatonin (Melatonin 3 Mg Tablet) 6 mg PO BEDTIME PRN PRN Reason: Insomnia Nicotine Polacrilex (Nicotine Polacrilex 2 Mg Gum) 2 mg BUCCAL Q2H PRN PRN Reason: Nicotine Cravings Last Admin: 01/29/24 00:22 Dose: 2 mg Documented By: JAKUB Ondansetron HCl (Ondansetron Hcl 4 Mg/2 Ml Vial) 4 mg IVPUSH Q8H PRN PRN Reason: Nausea and Vomiting Last Admin: 01/29/24 00:22 Dose: 4 mg Documented By: JAKUB Pharmacy Consult (Consult Rx Vancomycin Dosing) 1 each MISCELLANE DAILY PRN PRN Reason: Consult order Sodium Chloride (0.9 % Sodium Chloride Flush 3 Ml Syringe) [facility] Admin: 01/31/24 08:04 Dose: 3 ml Documented By: SYEDA Tramadol HCl (Tramadol Hcl 50 Mg Tablet) 50 mg PO Q6H PRN PRN Reason: Pain, Severe (Pain Scale 7-10) Last Admin: 01/31/24 04:14 Dose: 50 mg Documented By: MARIA INES Labs 01/29/24 04:13 01/31/24 05:31 Labs: Laboratory Results - last 24 hr 01/31/24 01/31/24 05:31 10:00 Estim Creat Clear Calc 111.5 Estimated GFR > 60 Random Vancomycin 8.3 L Microbiology Microbiology Results: Microbiology 01/30/24 Unknown Gram Stain - Final Hand Right Routine Culture - Preliminary Staphylococcus aureus 01/28/24 23:11 Blood Culture - Preliminary Blood - Venous No growth after 48 hours. 01/28/24 23:02 Blood Culture - Preliminary Blood - Venous No growth after 48 hours. Assessment and Plan (1) Cellulitis of hand, right: Status: Acute (2) Opioid use disorder: Status: Acute Plan This is a 43-year-old male with pertinent history of IV drug use disorder on Suboxone who presents to the emergency department for evaluation of right hand swelling. Right hand cellulitis with abscess does not meet sepsis criteria IV vancomycin s/p I&D 01/30/24, dressing intact Blood cultures neg after 24 hrs hand cx staph aureus Polysubstance use disorder seen by Addiction Team Continue Suboxone Elevated transaminases lower then previous Outpatient follow-up Acute lactic acidosis Not due to sepsis Resolved with IV fluid Chronic thrombocytopenia Follow CBC Tobacco dependence Smoking cessation advised NRT DVT prophylaxis: Lovenox Attending Dr. Sierra Full code requires ongoing hospital stay for IV antibiotics (as above), and surgical intervention which is not possible in a lesser acute setting. Quality Stroke Does the patient have a stroke diagnosis?: No VTE Prior VTE?: No VTE Risk Level:: Medical - moderate - high VTE Device Contraindication: Treatment Not Indicated VTE Drug Contraindication: N/A - Med Ordered
--- NOTE | 2024-01-31 14:42 | PC.NURSE ---
awaiting radiator specialist to see pt for his hand.
[2024-01-31 15:14] VITALS: BP 126/72; PULSE 66; RESP 18; TEMP 36.4; O2SAT 98
--- NOTE | 2024-01-31 18:23 | PC.NURSE ---
Wound Changed, dsd, wound with granulation, scant ss drainage, no odor, pt tolerated well.
[2024-01-31 19:41] VITALS: BP 135/73; PULSE 80; RESP 20; TEMP 36.3; O2SAT 94
[2024-02-01] MEDS: vancomycin HCL 1,500 MG in 0.9 % Sodium Chloride 500 ML 333.33 MG IV (00:36)
[2024-02-01] MEDS: 0.9 % Sodium Chloride Flush 3 ML SYRINGE IVFLUSH ×2 (00:38→08:20)
[2024-02-01 03:44] VITALS: BP 109/64; PULSE 59; RESP 18; TEMP 36.1; O2SAT 100
[2024-02-01 07:15] LABS: Creatinine Clr Calc Pharmacy 128.1; Estimated Glomerular Filt Rate > 60
[2024-02-01 08:00] VITALS: BP 116/75; PULSE 63; RESP 18; TEMP 36.6; O2SAT 98
[2024-02-01] MEDS: Enoxaparin Sodium 40 MG/0.4 ML SYRINGE SUBCUT (08:19)
[2024-02-01] MEDS: Buprenorphine/Naloxone 8/2 mg FILM 1 FILM SUBLINGUAL (08:19)
--- NOTE | 2024-02-01 08:34 | PM.DS ---
DS: Providers Provider Date of Service: 02/01/24 Date of admission: 01/28/24 23:03 Primary care physician: Ilya Girard DO, MD Consults: 01/28/24 23:03 Addiction Medicine Routine Consulting Provider: Addiction Covering Reason for consultation: polysubstance use disorder 01/29/24 07:52 Consult to [place]opedics Routine [place] [facility] [place] [facility] Reason for consultation: right hand infection/fluid collection Has provider been notified: No 01/31/24 08:49 Consult to Wound Care Routine Reason for consultation: Right Hand I&D with Cellulitis DS: Diagnosis Discharge Diagnosis (1) Cellulitis of hand, right: Status: Acute (2) Opioid use disorder: Status: Acute DS: Summary Hospital Course Hospital Course: History and physical as per admitting provider. This is a 43-year-old male with pertinent history of IV drug use disorder on Suboxone who presents to the emergency department for evaluation of right hand swelling. Patient admits that he previously used IV drugs but states he stopped using IV drugs recently. He sniffs drugs and last used on the day of presentation. Patient denies using IV drugs in the right hand. States that about 2 weeks ago he had a small laceration on the right hand which never healed. He began noticing swelling and pain of the right hand that started 3 days prior to presentation. Patient was in the ER yesterday but left without being seen. His symptoms have been progressive and he is unable to completely make a fist with the right hand. Also noticed discharge from the right hand. Denies any history of skin infection or MRSA. No fever, chills, chest discomfort, palpitations, shortness of breath, abdominal pain, changes in urinary or bowel habits. In the emergency department, x-ray without any acute abnormality and patient was initiated on empiric IV antibiotics 43-year-old man treated for right hand cellulitis with abscess. Status post I&D 01/30/2024. Found to have MRSA in wound, treated initially with IV vancomycin plan will be to complete a total of 14 days antibiotic with linezolid at home. Blood cultures have remained negative. Patient seen and evaluated by Orthopedic surgery with recommendation to keep wound clean and dry and cover with nonstick dry dressing. Follow up with Orthopedic surgery in office in 1 week. He was also seen by Occupational therapy. Patient has had no fevers and has good range of motion to right hand. He has requested to be discharged and it is safe to do so at this time. Polysubstance abuse disorder. Continue Suboxone Acute lactic acidosis. Not due to sepsis. Resolved with IV fluids Tobacco dependence. Smoking cessation advised treated with nicotine replacement therapy during hospitalization Thrombocytopenia. Chronic Transaminitis. Chronic Time Attestation Discharge Coordination Time (in mins): 35 Quality: Safe Use of Opioids Does Pt have an Active Cancer Diagnosis on the Problem List?: No Quality: Stroke Does the patient have a stroke diagnosis?: No Physical Exam Vital Signs: Vital Signs: Last Vital Signs Temp 97.9 F 02/01/24 08:00 Pulse 63 02/01/24 08:00 Resp 18 02/01/24 08:00 BP 116/75 02/01/24 08:00 Pulse Ox 98 02/01/24 08:00 O2 Del Method Room Air 02/01/24 08:00 BMI result Body Mass Index 21.0 Appearing in no acute distress head is normocephalic atraumatic eyes pupils are PERRLA sclera is anicteric mouth throat mucous membranes are intact and moist neck is supple no lymphadenopathy, no JVD noted lung sounds are clear to auscultation heart regular rate rhythm, clear S1, S2 positive bowel sounds, abdomen is soft, nontender neuro patient is alert x3, no focal deficits Right hand mild edema with no induration, odor or drainage, small pinhole open area DS: Data Data Completed and Pending Labs on day of discharge: Laboratory Results - last 24 hr 01/31/24 02/01/24 10:00 05:26 Creatinine 0.67 Estim Creat Clear Calc 128.1 Estimated GFR > 60 Random Vancomycin 8.3 L Preliminary micro results at discharge 01/28/24 23:11 Blood Culture - Preliminary Blood - Venous No growth after 48 hours. 01/28/24 23:02 Blood Culture - Preliminary Blood - Venous No growth after 48 hours. Discharge Plan Discharge Anticipated Discharge Date/Time: 02/01/24 08:31 Patient Disposition: Home Health Service Discharge Diagnosis: Right hand cellulitis with abscess Referrals: Ilya Girard DO, MD [Primary Care Provider] - 1 Week Magdalena Null MD [Physician] - 1 Week ([place] [facility] [place] Null) Discharge Medications: New linezolid 600 mg tablet 600 mg PO Q12H 10 Days Qty: 20 0RF Continued buprenorphine-naloxone [Suboxone] 8-2 mg film 1 film sublingual TID@[id number],1600,1999 Discharge Orders: Discharge Order (Routine); Ordered 02/01/24 Ordered By: Jojo Vega Diet: Advance to usual diet Activity on Discharge: As tolerated Stand Alone Forms: Patient Portal Discharge page Print Language: Thai Care Plan Goals: Restore normal function of right hand Health Concerns: Right hand cellulitis with abscess Plan of Treatment: Follow-up with primary care provider as needed Take all medications as prescribed Follow-up in 1 week in Orthopedic office for reassessment 2 lb weight limit in right hand Occupational hand therapy for range of motion and strengthening of the right hand Home dressing changes Assessment: See discharge summary
--- NOTE | 2024-02-01 09:07 | P.F2F_ITS ---
Service Date Service Date: 02/01/24 Encounter Date of encounter: 02/01/24 Reasons for Services Signs and symptoms assessed: right hand abscess and cellulitis MRSA in wound Reason for detention: wound care Reason for occupational therapy: therapeutic exercises (right hand abscess and cellulitis) Homebound: Leaving the home is medically contraindicated at this time without the asist of a device and/or another person due th the listed conditions above and below. Reason homebound: weakness related to hospital stay Certification: Based on the above findings, I certify that this patient is confined to the home and needs intermittent detention care, physical therapy and/or speech therapy, or continues to need occupational therapy. The patient is under my care, and I have initiated the establishment of the plan of care. The patient will be followed by a physician who will periodically review the plan of care. Time Spent With Patient Time: Total time managing care of this patient today ____ minutes.
--- NOTE | 2024-02-01 09:30 | PC.NURSE ---
pt for discharge to home , given dressing supplies pt verbalized understanding of how to do dressing changes as instructed by MD at home aware of need for follow up and need for po abx . pt accepting of discharge to home
--- NOTE | 2024-02-01 09:39 | MHC.CM.PN ---
Addendum entered by Kerri Stewart 02/01/24 13:07: home care services to be provided by [facility]. Original Note: Pt has been medically cleared for DC, he will go home via private transport. Rec are for home health services, referrals out to [facility].
--- NOTE | 2024-02-01 09:52 | PM.PNORT ---
Subjective Subjective Date of Service: 02/01/24 Interval history: Patient is a 43-year-old male who is postop day 2 status post I and D of right dorsal hand abscess. Patient is doing much better this morning, and his experiencing no pain at this time. The patient reports that he has been working on range of motion of his right hand since being evaluated yesterday, and then it has improved dramatically. Patient is working with OT during interview today. Patient denies any numbness or tingling. No other acute complaints or concerns at this time. Physical Exam Vital Signs: Vital Signs: Last Vital Signs Temp 97.9 F 02/01/24 08:00 Pulse 63 02/01/24 08:00 Resp 18 02/01/24 08:00 BP 116/75 02/01/24 08:00 Pulse Ox 98 02/01/24 08:00 O2 Del Method Room Air 02/01/24 08:00 BMI result Body Mass Index 21.0 Extrem: Other: Patient is alert, oriented, and in no acute distress. Neuro: Median, ulnar, radial nerves motor and sensory intact and sensation is normal to the tips of all digits. Vascular: Cap refill brisk Pain: Patient reports no tenderness to palpation about the dorsal right hand ROM: Patient has very improved range of motion of the right hand, and is is able to make a closed fist with encouragement Patient is able to extend fully Skin: Incision site with a single suture placed noted on the dorsal hand over the distal 3rd metacarpal shaft General: Edema and erythema of the right hand improved significantly since yesterday No active discharge or drainage at this time. Psych: Appears grossly normal Affect normal Attitude cooperative Procedures Date of Service Date of Service: 02/01/24 Progress Note: A&P Assessment and plan (1) Abscess of dorsum of right hand: Status: Acute Plan 1. Right dorsal hand abscess status post irrigation and debridement DOS 01/30/2024 Patient is recovering well postoperatively Patient is educated about the typical recovery course At this time, from an orthopedic perspective, patient is cleared for discharge with close outpatient follow-up in 1 week Continue with p.o. antibiotics as prescribed per Medicine Continue with occupational therapy outpatient for strengthening, range of motion of right hand Patient is instructed that he can change his dressings at home, but should ensure that the area remains clean, dry, intact Patient is educated that he has a strict 2 lb weight limit in his right hand at this time Patient is amenable to this plan Continue with all of the recommendations per Medicine Time Spent With Patient Time: Total time managing care of this patient today ____ minutes. Quality Stroke Does the patient have a stroke diagnosis?: No VTE Prior VTE?: No VTE Risk Level:: Medical - moderate - high VTE Device Contraindication: Treatment Not Indicated VTE Drug Contraindication: N/A - Med Ordered
== END 2024-02-01 09:34 | disposition home health service (06) | DRG 364 ==
LOC: HO.ED 22:46 → HO.EDOVER 23:06 → HO.S3 01-29 19:42
PROVIDERS: Orthopaedic Surgery; Admitting Provider Student in an Organized Health Care Education/Training Program; Emergency Provider Emergency Medicine; PCP Internal Medicine; Visit Provider Nurse Practitioner Acute Care
PROC: 0JBJ0ZZ Excision of Right Hand Subcutaneous Tissue and Fascia, Open Approach (ICD-10-PCS; principal; 2024-01-30 13:10)
DX: L02.511 Cutaneous abscess of right hand (principal); D69.6 Thrombocytopenia, unspecified; E87.21 Acute metabolic acidosis; L03.113 Cellulitis of right upper limb; F17.210 Nicotine dependence, cigarettes, uncomplicated; Z71.6 Tobacco abuse counseling; F11.20 Opioid dependence, uncomplicated; B95.62 Methicillin resistant Staphylococcus aureus infection as the cause of diseases classified elsewhere; F19.90 Other psychoactive substance use, unspecified, uncomplicated
CPT/HCPCS: 36415; 73130; 73201; 80048; 80053; 80202; 80307; 82565; 83605; 85025; 85652; 86140; 87040; 87070; 87077; 87186; 87205; 97165; 99285; J0131; J1596; J1650; J1885; J2250; J2405; J2543; J2704; J3010; J3370; J3371; Q9967

== ENCOUNTER → 2024-01-28 23:03 | Outpatient (BNV) | payer OTHER, SELFPAY | PROVIDERS: Admitting Provider Student in an Organized Health Care Education/Training Program; Emergency Provider Emergency Medicine; PCP Internal Medicine | DX: L02.511 Cutaneous abscess of right hand (principal) | CPT/HCPCS: 10060; 99024; 99222 ==

== ENCOUNTER → 2024-01-28 23:03 | Outpatient (BNV) | payer OTHER, SELFPAY | PROVIDERS: Admitting Provider Student in an Organized Health Care Education/Training Program; Emergency Provider Emergency Medicine; PCP Internal Medicine; Visit Provider Student in an Organized Health Care Education/Training Program | DX: L03.113 Cellulitis of right upper limb (principal); F11.90 Opioid use, unspecified, uncomplicated | CPT/HCPCS: 99222; 99232; 99239; G0180 ==